=== PATIENT | male | born 1960 | race Caucasian/White ===

== ENCOUNTER 2016-08-14 07:37 | Day surgery (SDC) | payer OTHER ==
[2016-08-09 12:14] VITALS: BMI 19.8
[~2016-08-14 07:37] MED LIST: LACTATED RINGERS 1,000 ML IV SCH; LIDOCAINE 1% 20 ML VIAL (10MG/ML) FOR IV START INTRADERMA PRN
[2016-08-14] MEDS ORDERED: LACTATED RINGERS 1,000 ML IV ONE (07:47)
[2016-08-14 07:59] VITALS: RESP 16; TEMP 97.8
[2016-08-14 08:00] LABS: Glucose,Whole Blood 145 mg/dL (75-99)
[2016-08-14] MEDS ORDERED: PROPOFOL 10 MG/ML 20 ML VIAL IV ONE (08:08)
[2016-08-14] MEDS ORDERED: LIDOCAINE 1% INJ 10MG/ML (20 ML MDV) ONE (08:08)
--- NOTE | 2016-08-14 08:09 | P.GSHP ---
History of Present Illness H&P Date: 08/14/16 Chief Complaint: Rectal bleeding Patient here today for colonoscopy. He has a history of diverticulitis. Last CAT scan was in November and that did not show diverticulitis did show diverticulosis. He has frequent rectal bleeding that spot to be related to chronic hemorrhoids. He is having some mild constipation at times. No fevers or chills. Past Medical History Past Medical History: Cancer, COPD, Diabetes Mellitus, GERD/Reflux, Liver Disease, Osteoarthritis (OA) Additional Past Medical History / Comment(s): SKIN CANCER , CYST ON LIVER, CYST ON KIDNEY, DERMATOMYOSITIS History of Any Multi-Drug Resistant Organisms: None Reported Past Surgical History: Cholecystectomy, Ear Surgery, Hernia Repair, Joint Replacement, Orthopedic Surgery, Tonsillectomy Additional Past Surgical History / Comment(s): LEFT AKA - joint replacement surgery , allergic reaction to glue resulting in AKA, hernia surgery, 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 .cyst from parotid removed, right and left shoulder, right and left knee surgery, Past Anesthesia/Blood Transfusion Reactions: Postoperative Nausea & Vomiting ( PONV) Past Psychological History: Depression Smoking Status: Current every day smoker Past Alcohol Use History: None Reported Additional Past Alcohol Use History / Comment(s): started smoking at age 12 smkes 1ppd Past Drug Use History: Marijuana Additional Drug Use History / Comment(s): medical marijuana card - smokes once in a great while - Past Family History Mother Family Medical History: Cancer Additional Family Medical History / Comment(s): skin cancer Medications and Allergies Home Medications Medication Instructions Recorded Confirmed Type Albuterol Inhaler [Ventolin Hfa 2 puff INHALATION RT-Q6H PRN 10/20/15 08/14/16 History Inhaler] HYDROcodone/APAP 10-325MG [[place] 1 tab PO Q4HR PRN 10/20/15 08/14/16 History 10-325] Insulin Glargine [Lantus] 17 unit SQ 1200 10/20/15 08/14/16 History Ranitidine HCl 150 mg PO HS PRN 10/20/15 08/14/16 History glipiZIDE [Glucotrol] 5 mg PO AC-TID 10/20/15 08/14/16 History metFORMIN HCL [Glucophage] 500 mg PO BID 10/20/15 08/14/16 History traZODone HCL [Desyrel] 150 mg PO HS 10/20/15 08/14/16 History Allergies Allergy/AdvReac Type Severity Reaction Status Date / Time pneumococcal vaccine Allergy Nausea & Verified 08/14/16 07:50 Vomiting vancomycin Allergy Unknown Verified 08/14/16 07:50 amoxicillin trihydrate AdvReac Nausea & Verified 08/14/16 07:50 [From Augmentin] Vomiting potassium clavulanate AdvReac Nausea & Verified 08/14/16 07:50 [From Augmentin] Vomiting Flu vaccine Allergy Nausea & Uncoded 08/14/16 07:50 Vomiting methyl Allergy Unknown Uncoded 08/14/16 07:50 Surgical - Exam Vital Signs Temp Pulse Resp BP Pulse Ox 97.8 F 62 16 107/76 97 08/14/16 07:57 08/14/16 07:57 08/14/16 07:57 08/14/16 07:57 08/14/16 07:57 Physical exam: General: Well-developed, well-nourished HEENT: Normocephalic, sclerae nonicteric Abdomen: Nontender, nondistended Extremities: No edema Neuro: Alert and oriented, paraplegic Results - Labs Abnormal Lab Results - Last 24 Hours (Table) 08/14/16 Range/Units 07:57 POC Glucose (mg/dL) 145 H (75-99) mg/dL Assessment and Plan (1) Rectal bleeding Narrative/Plan: Will proceed with colonoscopy at this time. Associated risks were reviewed. Status: Acute
--- NOTE | 2016-08-14 08:32 | P.PCN ---
Date of Procedure: 08/14/16 Procedure(s) Performed: PREOPERATIVE DIAGNOSIS: Rectal bleed, change in bowel habits POSTOPERATIVE DIAGNOSIS: Hepatic flexure polyp 4, sigmoid colon polyp PROCEDURE: Colonoscopy with snare polypectomy ANESTHESIA: MAC SURGEON: Selwyn Cheng M.D. SPECIMENS: Polyps ENDOSCOPIC PROCEDURE: The patient was placed on the endoscopy table in the left decubitus position. The Olympus colonoscope was inserted into the anus and passed under direct visualization to the base of the cecum. The appendiceal orifice was visualized. From that point the scope was slowly withdrawn inspecting all surfaces carefully. There were no neoplastic inflammatory or polypoid lesions throughout the cecum or ascending colon. At the hepatic flexure there were 4 separate polyps all removed using the snare with cautery technique. The remainder of the transverse and descending colon appeared normal. In the sigmoid and additional small polyp removed in a similar fashion. The remainder of the sigmoid and rectum was normal. I was not able to visualize diverticulosis although the previous CAT scan suggested he may have some diverticular disease. The patient had hemorrhoids at the anus. The patient was taken to the recovery room in stable condition per anesthesia guidelines. RECOMMENDATIONS: Await biopsy results. Anticipate follow-up colonoscopy in 5 years
[2016-08-14 08:57] VITALS: BP 121/74; PULSE 67
== END 2016-08-14 09:16 | disposition home or self-care (01) ==
LOC: ORWHC2ENDO 07:37
PROVIDERS: ATTEND Surgery
DX: D12.3 Benign neoplasm of transverse colon (principal); D12.5 Benign neoplasm of sigmoid colon; K64.9 Unspecified hemorrhoids; Z87.19 Personal history of other diseases of the digestive system; J44.9 Chronic obstructive pulmonary disease, unspecified; E11.9 Type 2 diabetes mellitus without complications; K21.9 Gastro-esophageal reflux disease without esophagitis; M19.90 Unspecified osteoarthritis, unspecified site; F32.9 Major depressive disorder, single episode, unspecified; F17.200 Nicotine dependence, unspecified, uncomplicated; Z79.4 Long term (current) use of insulin; Z79.891 Long term (current) use of opiate analgesic; Z79.899 Other long term (current) drug therapy; Z88.1 Allergy status to other antibiotic agents; Z88.7 Allergy status to serum and vaccine; Z88.8 Allergy status to other drugs, medicaments and biological substances
CPT/HCPCS: 88305; 45385; J2001; J2704; 99153

== ENCOUNTER → 2016-09-11 | Outpatient (CLI) | payer OTHER ==
--- NOTE | 2016-09-11 13:55 | US ---
EXAMINATION TYPE: US kidneys/renal and bladder DATE OF EXAM: 09/11/2016 1:26 PM COMPARISON: Previous study dated 04/08/2016 CLINICAL HISTORY: R10.9 R Flank Pain. EXAM MEASUREMENTS: Right Kidney: 11.6 x 5.7 x 6.9cm Left Kidney: 13.2 x 4.8 x 6.7cm TECHNOLOGIST IMPRESSION: Right Kidney: wnl Left Kidney: superior pole cyst 2.6cm Bladder: wnl Bilateral Jets seen: yes There is no evidence for hydronephrosis at this point in time. No nephrolithiasis is seen. No mookie s are identified. The urinary bladder is anechoic. Bilateral ureteral jets are seen. IMPRESSION: Stable, 2.6 cm, simple appearing right left upper Pole renal cyst.
== END | disposition home or self-care (01) ==
LOC: RADUSWWP 13:01
PROVIDERS: ATTEND Internal Medicine
DX: N28.1 Cyst of kidney, acquired (principal)
CPT/HCPCS: 76770

== ENCOUNTER → 2017-03-05 | Outpatient (CLI) | payer OTHER ==
--- NOTE | 2017-03-05 14:14 | XR ---
EXAMINATION TYPE: XR chest 2V DATE OF EXAM: 03/05/2017 HISTORY: Cough, weight loss. REFERENCE: Previous study dated 04/05/2015. FINDINGS: The lungs are clear. Pleural space are clear. The heart is not enlarged. Note is made of bilateral rotator cuff surgery. IMPRESSION: NO ACUTE INTRATHORACIC ABNORMALITY.
== END | disposition home or self-care (01) ==
LOC: RADXRMAIN 13:36
PROVIDERS: ATTEND Internal Medicine
DX: R05 Cough (principal); R63.4 Abnormal weight loss
CPT/HCPCS: 71020

== ENCOUNTER 2017-05-21 07:04 | Day surgery (SDC) | payer OTHER ==
[2017-05-19 11:54] VITALS: BMI 19.8
[2017-05-21 07:25] VITALS: RESP 16; TEMP 97
[2017-05-21 07:34] LABS: Glucose,Whole Blood 118 mg/dL (75-99)
[2017-05-21] MEDS ORDERED: GLYCOPYRROLATE 0.2 MG/ML 2 ML VIAL ONE (07:36)
[2017-05-21] MEDS ORDERED: LIDOCAINE 1% INJ 10MG/ML (20 ML MDV) ONE (07:36)
[2017-05-21] MEDS ORDERED: PROPOFOL 10 MG/ML 20 ML VIAL IV ONE (07:36)
--- NOTE | 2017-05-21 07:49 | P.PCN ---
Date of Procedure: 05/21/17 Procedure(s) Performed: BRIEF HISTORY: Patient is a 57-year-old, pleasant, male, scheduled for an upper endoscopy as a part of evaluation of excessive dysphagia to solids and liquids for the last 3 months duration. Denies any weight loss. Does have occasional heartburn.. PROCEDURE PERFORMED: Esophagogastroduodenoscopy with biopsy. PREOPERATIVE DIAGNOSIS: Dysphagia to solids and liquids for 3 months duration. IV sedation per anesthesia. PROCEDURE: After informed consent was obtained, the patient was brought into the endoscopy unit. IV sedation was administered by Anesthesia under continuous monitoring. Initially the Olympus GIF-140 video endoscope was inserted into the mouth. Esophagus intubated without any difficulty. It was gradually advanced into the stomach and duodenum and carefully examined. The bulb and the second part of the duodenum appeared normal. There was mild erythema of the second portion of the duodenum and biopsies were done from this area to evaluate for celiac disease. The scope at this time was withdrawn to the stomach, adequately insufflated with air, and upon careful examination, mucosa of the antrum, had gastritis and biopsies were done from this area. The body, cardia and the fundus appeared normal. The scope was then withdrawn into the esophagus. The GE junction was located at 42 cm from the incisors. There was circumferential erythema noted and also short segment of Ramos's esophagus with a tongue of Ramos's appearing mucosa extending 5 mm from the proximal to the GE junction and this was biopsied. The rest of the esophagus appeared normal. There were no erosions or ulcerations seen and the patient tolerated the procedure well. IMPRESSION: 1. Mild antral gastritis and duodenitis. 2. Mild erythema of the GE junction and short segment Ramos's esophagus status post biopsy. 3. No evidence of esophageal stricture. RECOMMENDATIONS: The findings of this examination were discussed with the patient as well as his family. He was advised to follow with the biopsy results. In the meantime he will be given a prescription for Prevacid 20 mg daily and was briefly educated about antireflux measures. If he fails the trial of proton pump inhibitors for 8 weeks and continues to have persistent dysphagia, I will proceed with impedance esophageal manometry..
[2017-05-21 07:59] LABS: Glucose,Whole Blood 125 mg/dL (75-99)
[2017-05-21 08:10] VITALS: BP 134/75; PULSE 69
== END 2017-05-21 08:35 | disposition home or self-care (01) ==
LOC: ORWHC2ENDO 07:04
PROVIDERS: ATTEND Internal Medicine Gastroenterology
DX: K29.50 Unspecified chronic gastritis without bleeding (principal); K29.80 Duodenitis without bleeding; K21.0 Gastro-esophageal reflux disease with esophagitis; J44.9 Chronic obstructive pulmonary disease, unspecified; E11.9 Type 2 diabetes mellitus without complications; Z88.0 Allergy status to penicillin; Z88.1 Allergy status to other antibiotic agents; Z79.4 Long term (current) use of insulin; Z79.891 Long term (current) use of opiate analgesic; Z79.899 Other long term (current) drug therapy
CPT/HCPCS: 88305; 88342; 43239; J2001; J2704

== ENCOUNTER 2017-11-05 15:48 | Emergency (ER) | payer OTHER ==
[2017-11-05 16:05] VITALS: RESP 18; TEMP 98.2
[2017-11-05] MEDS ORDERED: MORPHINE SULFATE IR 15 MG TABLET PO STA (16:23)
[2017-11-05 18:14] VITALS: BP 121/63; PULSE 91
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
== END 2017-11-05 18:49 | disposition home or self-care (01) ==
LOC: EC 15:48
DX: S06.0X0A Concussion without loss of consciousness, initial encounter (principal); E11.9 Type 2 diabetes mellitus without complications; F32.9 Major depressive disorder, single episode, unspecified; F17.200 Nicotine dependence, unspecified, uncomplicated; Z88.0 Allergy status to penicillin; Z88.1 Allergy status to other antibiotic agents; Z88.7 Allergy status to serum and vaccine; Z88.8 Allergy status to other drugs, medicaments and biological substances; Z79.4 Long term (current) use of insulin; Z79.84 Long term (current) use of oral hypoglycemic drugs; Z79.899 Other long term (current) drug therapy; Y04.0XXA Assault by unarmed brawl or fight, initial encounter
CPT/HCPCS: 70450; 72125; 99283

== ENCOUNTER → 2017-12-05 | Outpatient (CLI) | payer OTHER ==
--- NOTE | 2017-12-05 08:25 | US ---
EXAMINATION TYPE: US abdomen complete DATE OF EXAM: 12/05/2017 COMPARISON: CT abdomen and pelvis November 18, 2015. CLINICAL HISTORY: Q44.6 Liver cyst, N28.1 Kidney cyst. LLQ pain related to constipation issues EXAM MEASUREMENTS: Liver Length: 14.7 cm Gallbladder Wall: Surgically absent CBD: 0.6 cm Spleen: 11.3 cm Right Kidney: 12.6 x 4.9 x 6.1 cm Left Kidney: 12.1 x 4.7 x 7.1 cm limited views due to bowel gas Pancreas: areas seen appear wnl Liver: 2.0cm medial left lobe cyst seen Gallbladder: Surgically absent Evidence for sonographic Lockhart's sign: no CBD: wnl Spleen: wnl Right Kidney: wnl Left Kidney: 2.4cm superior pole cyst Upper IVC: wnl Abd Aorta: wnl Scanned LLQ at area of pain and saw no obvious abnormality The visualized liver shows thin-walled 1.7 cm cyst left hepatic dome. Liver is overall heterogeneous ly hyperechoic. The intrahepatic portion of the IVC and visualized abdominal aorta are within normal limits. Gallbladder is surgically absent. Common bile duct is unremarkable. The visualized portions of the pancreas are homogenous. The spleen is unremarkable. Kidneys are symmetric and free of hydr onephrosis. No new renal lesions are seen. A 2.4 cm simple appearing cyst upper pole left kidney is redemonstrated. Last few images scanning of left lower quadrant and site of pain show no worrisome so lid or cystic mass or fluid collection. IMPRESSION: No suspicious new finding is seen to account for patient's symptoms.
== END | disposition home or self-care (01) ==
LOC: RADUSWWP 06:53
PROVIDERS: ATTEND Internal Medicine
DX: N28.1 Cyst of kidney, acquired (principal)
CPT/HCPCS: 76700

== ENCOUNTER → 2018-03-19 | Outpatient (CLI) | payer OTHER ==
--- NOTE | 2018-03-19 14:40 | MR ---
EXAMINATION TYPE: MR lumbar spine wo con DATE OF EXAM: 03/19/2018 COMPARISON: MRI lumbar spine June 12, 2016. CT abdomen and pelvis November 18, 2015. HISTORY: Low back pain per order and patient for 4 years. TECHNIQUE: Multiplanar, multisequence imaging of the lumbar spine is performed without IV contrast. FINDINGS: Sagittal images of the lumbar spine show vertebral body heights to remain satisfactory. Ali gnment is stable and straightened. There is redemonstration of disc desiccation L4-L5 and L5-S1 level s with perhaps mild disc space narrowing L5-S1 level. Small posterior disc herniations at these level s are redemonstrated on sagittal images. The conus medullaris remains normal in position and signal e nding mid L1 level . The bone marrow signal intensity is within normal limits. There is mild to moder ate multilevel anterior spurring. Axial images show the T12-L1 and the L1-L2 levels to remain within normal limits. Axial images at L2-L3 and the L3-L4 levels redemonstrate mild facet degenerative changes and ligament um flavum hypertrophy bilaterally but spinal canal is preserved and bilateral neural foramina are pat ent. No significant change from prior. Axial images at the L4-L5 level show mild to moderate broad disc bulge mildly effacing anterior theca l sac and causing moderate right and mild to moderate left-sided neural foraminal narrowing. No signi ficant change from prior MRI. Axial images at the L5-S1 level show broad disc bulge with left paracentral disc protrusion component effacing anterolateral thecal sac and causing mild bilateral anterior inferior neural foraminal narr owing. No significant change from prior study. There are few simple appearing round T2 hyperintense lesions throughout the visualized left kidney re demonstrated felt to reflect simple cysts, largest is stable or slightly less prominent measuring 2.1 cm long axis axial image 26. IMPRESSION: Straightening of lumbar spine with degenerative changes L4-L5 and L5-S1 levels redemonstr ated. No significant change from prior MRI.
== END ==
LOC: RADMRIMAIN 11:58
PROVIDERS: ATTEND Internal Medicine
DX: M51.36 Other intervertebral disc degeneration, lumbar region (principal); M51.37 Other intervertebral disc degeneration, lumbosacral region
CPT/HCPCS: 72148

== ENCOUNTER → 2018-06-18 | Outpatient (CLI) | payer OTHER ==
[2018-06-18 15:34] LABS: HGB 17.4 gm/dL (13.0-17.5); MCH 30.9 pg (25.0-35.0); MCHC 33.4 g/dL (31.0-37.0); MCV 92.5 fL (80.0-100.0); Mean Platelet Volume 7.6; Platelet Count 156 k/uL (150-450); RBC 5.62 m/uL (4.30-5.90); RDW 13.1 % (11.5-15.5); WBC 9.8 k/uL (3.8-10.6)
[2018-06-18 16:02] LABS: Blood Urea Nitrogen 13 mg/dL (9-20); Potassium 3.8 mmol/L (3.5-5.1)
== END ==
LOC: LABPAT 14:34
PROVIDERS: ATTEND Orthopaedic Surgery
DX: Z01.812 Encounter for preprocedural laboratory examination (principal); Z79.4 Long term (current) use of insulin; Z79.899 Other long term (current) drug therapy
CPT/HCPCS: 36415; 82565; 84132; 84520; 85027

== ENCOUNTER → 2018-10-15 | Outpatient (CLI) | payer OTHER ==
--- NOTE | 2018-10-15 15:48 | US ---
EXAMINATION TYPE: US kidneys/renal and bladder DATE OF EXAM: 10/15/2018 COMPARISON: US 2017 CLINICAL HISTORY: R10.30 LOWER ABD PAIN. Intermittent lower abdomen and back pain x 6 months. EXAM MEASUREMENTS: Right Kidney: 11.2 x 6.0 x 5.2 cm Left Kidney: 11.8 x 6.0 x 4.6 cm Post Void Residual Volume: 42.4 mL Right Kidney: wnl Left Kidney: 2.3 x 2.2 x 2.4cm hypoechoic cystic area superior pole Bladder: wnl Bilateral Jets seen: yes Normal Post Void Residual: yes There is no evidence for hydronephrosis at this point in time. No nephrolithiasis is seen. No mookie s are identified. The urinary bladder is anechoic. Bilateral ureteral jets are seen. IMPRESSION: No hydronephrosis or nephrolithiasis. 2.4 cm left renal cyst appears simple.
== END | disposition home or self-care (01) ==
LOC: RADUSWWP 15:01
PROVIDERS: ATTEND Internal Medicine
DX: N28.1 Cyst of kidney, acquired (principal)
CPT/HCPCS: 76770

== ENCOUNTER 2019-07-19 21:49 | Emergency (ER) | payer OTHER ==
[2019-07-19 21:55] VITALS: RESP 18
[2019-07-19] MEDS ORDERED: KETOROLAC 30 MG/ML 1 ML VIAL IVP STA (22:31)
[2019-07-19] MEDS ORDERED: SODIUM CHLORIDE 0.9% 1,000 ML IV STA (22:31)
[2019-07-19] MEDS ORDERED: ONDANSETRON 4 MG/2 ML VIAL IVP STA (22:31)
--- NOTE | 2019-07-19 22:43 | ED ---
General Adult HPI - General Chief complaint: Abdominal Pain Stated complaint: no BM x8days Time Seen by Provider: 07/19/19 21:58 Source: patient Mode of arrival: wheelchair Limitations: physical limitation - History of Present Illness Initial comments: 59-year-old male patient presents to the emergency department today for evaluation of abdominal pain and constipation. States he has not had a bowel movement for the last 8 days. States the pain in his abdomen is worsening and worsening. He is able to urinate without difficulty. States that he also had a syncopal episode earlier today. He is sitting on the edge of the bed when he lost consciousness and fell on the floor. Denies any injuries from this fall. States that over the last 2-3 days he has had chest tightness and pain as well as shortness of breath. States he's been having intermittent sweats as well. He does have a reported history of diabetes and familial cardiac disease. 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 States he does occasionally have problems with constipation, has been taking Colace and MiraLAX without relief. Patient denies any recent rash, fever, chills, numbness, tingling, dizziness, weakness, hematuria, dysuria, urinary urgency, urinary frequency, headache, visual changes, or any other complaints. - Related Data Home Medications Medication Instructions Recorded Confirmed Albuterol Inhaler [Ventolin Hfa 2 puff INHALATION RT-Q6H PRN 10/20/15 06/22/18 Inhaler] Ranitidine HCl 150 mg PO DAILY PRN 10/20/15 06/22/18 metFORMIN HCL [Glucophage] 500 mg PO BID 10/20/15 06/22/18 glipiZIDE [Glucotrol] 5 mg PO TID 11/05/17 06/22/18 traZODone HCL 150 mg PO HS 11/05/17 06/22/18 Insulin Glargine,Hum.rec.anlog 30 unit SQ W/LUNCH 06/17/18 06/22/18 [Basaglar Kwikpen U-100] Mirtazapine [Remeron] 15 mg PO HS PRN 06/17/18 06/22/18 Previous Rx's Medication Instructions Recorded HYDROcodone/APAP 10-325MG [[place] 1 tab PO Q6H PRN #120 tab 06/23/18 10-325] Allergies Allergy/AdvReac Type Severity Reaction Status Date / Time adhesive Allergy skin Verified 07/19/19 21:56 irritation,paper tape is ok Influenza Virus Vaccines Allergy Nausea & Verified 07/19/19 21:56 Vomiting pneumococcal vaccine Allergy Nausea & Verified 07/19/19 21:56 Vomiting vancomycin Allergy GarretAndrea Verified 07/19/19 21:56 syndrome amoxicillin trihydrate AdvReac Nausea & Verified 07/19/19 21:56 [From Augmentin] Vomiting potassium clavulanate AdvReac Nausea & Verified 07/19/19 21:56 [From Augmentin] Vomiting methlomacrolate Allergy leg Uncoded 07/19/19 21:56 amputated methyl Allergy methylcrylate-used Uncoded 07/19/19 21:56 in surgery glue Review of Systems ROS Statement: Those systems with pertinent positive or pertinent negative responses have been documented in the HPI. ROS Other: All systems not noted in ROS Statement are negative. 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 , allergic reaction to glue resulting in AKA, 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 .cyst from parotid removed, right and left shoulder, right and left knee surgery, Past Anesthesia/Blood Transfusion Reactions: Postoperative Nausea & Vomiting (PONV) Past Psychological History: Depression Smoking Status: Current every day smoker Past Alcohol Use History: None Reported Past Drug Use History: None Reported - Past Family History Mother Family Medical History: Cancer Additional Family Medical History / Comment(s): skin cancer General Exam Limitations: physical limitation General appearance: alert, in no apparent distress, other (Physical well- developed, well-nourished adult male patient in no acute distress. Vital signs upon presentation are temperature 98.7F, pulse 104, respirations 18, blood pressure 94/60, pulse ox 94% on room air.) Eye exam: Present: normal appearance, PERRL, EOMI. Absent: scleral icterus, conjunctival injection, periorbital swelling ENT exam: Present: normal exam, normal oropharynx, mucous membranes moist Respiratory exam: Present: normal lung sounds bilaterally. Absent: respiratory distress, wheezes, rales, rhonchi, stridor Cardiovascular Exam: Present: regular rate, normal rhythm, normal heart sounds. Absent: systolic murmur, diastolic murmur, rubs, gallop, clicks GI/Abdominal exam: Present: soft, tenderness (Generalized), normal bowel sounds. Absent: distended, guarding, rebound, rigid Neurological exam: Present: alert, oriented X3, CN II-XII intact Psychiatric exam: Present: normal affect, normal mood Skin exam: Present: warm, dry, intact, normal color. Absent: rash Course Vital Signs 07/19/19 07/20/19 21:50 02:21 Temperature 98.7 F 97 F L Pulse Rate 104 H 77 Respiratory 18 18 Rate Blood Pressure 94/60 144/84 O2 Sat by Pulse 94 L 97 Oximetry EKG Findings - EKG Comments: EKG Findings:: EKG obtained at 2322 shows normal sinus rhythm with a ventricular rate of 81, MA interval 170, QRS duration 98, QT 392, QTc 455. No evidence of ST elevation or depression. Medical Decision Making - Medical Decision Making 59-year-old male patient presents to the emergency department today for cody luation of abdominal discomfort and constipation. His examination did reveal lower abdominal tenderness. Patient is also reporting some intermittent chest pain and shortness of breath present for the last couple of weeks. EKG was unremarkable. Chest x-ray showed no acute cardiopulmonary process. KUB showed overall nonobstructive bowel gas pattern. Patient's white blood cell count elevated at 17,000, did perform CT the abdomen and pelvis which was negative. Patient does have a medical condition which causes leukocytosis. Did offer to perform enema in the emergency department, patient declined requesting to take enema home. He'll be discharged with a fleets enema. He is instructed to increase fluids and fruits and vegetables in his diet. Instructed to follow-up his primary care physician for recheck in 1-2 days. Return parameters were discussed in detail. He verbalizes understanding and agrees with this plan. - Lab Data Result diagrams: 07/19/19 22:47 07/19/19 22:47 Lab Results 07/19/19 07/19/19 07/19/19 Range/Units 22:47 22:47 22:47 WBC 17.3 H (3.8-10.6) k/uL RBC 5.22 (4.30-5.90) m/uL Hgb 16.3 (13.0-17.5) gm/dL Hct 46.7 (39.0-53.0) % MCV 89.4 (80.0-100.0) fL MCH 31.2 (25.0-35.0) pg MCHC 34.9 (31.0-37.0) g/dL RDW 12.9 (11.5-15.5) % Plt Count 160 (150-450) k/uL Neutrophils % 84 % Lymphocytes % 9 % Monocytes % 5 % Eosinophils % 1 % Basophils % 1 % Neutrophils # 14.6 H (1.3-7.7) k/uL Lymphocytes # 1.5 (1.0-4.8) k/uL Monocytes # 0.8 (0-1.0) k/uL Eosinophils # 0.1 (0-0.7) k/uL Basophils # 0.1 (0-0.2) k/uL Sodium 134 L (137-145) mmol/L Potassium 3.4 L (3.5-5.1) mmol/L Chloride 99 (98-107) mmol/L Carbon Dioxide 27 (22-30) mmol/L Anion Gap 8 mmol/L BUN 16 (9-20) mg/dL Creatinine 0.69 (0.66-1.25) mg/dL Est GFR (CKD-EPI)AfAm >90 (>60 ml/min/1.73 sqM) Est GFR (CKD-EPI)NonAf >90 (>60 ml/min/1.73 sqM) Glucose 160 H (74-99) mg/dL Calcium 8.5 (8.4-10.2) mg/dL Total Bilirubin 1.2 (0.2-1.3) mg/dL AST 32 (17-59) U/L ALT 36 (21-72) U/L Alkaline Phosphatase 106 (38-126) U/L Troponin I <0.012 (0.000-0.034) ng/mL Total Protein 6.5 (6.3-8.2) g/dL Albumin 3.6 (3.5-5.0) g/dL Amylase <30 L (30-110) U/L Lipase 50 (23-300) U/L Urine Color Urine Appearance (Clear) Urine pH (5.0-8.0) Ur Specific [place] (1.001-1.035) Urine Protein (Negative) Urine Glucose (UA) (Negative) Urine Ketones (Negative) Urine Blood (Negative) Urine Nitrite (Negative) Urine Bilirubin (Negative) Urine Urobilinogen (<2.0) mg/dL Ur Leukocyte Esterase (Negative) Urine RBC (0-5) /hpf Urine WBC (0-5) /hpf Urine Mucus (None) /hpf 07/19/19 Range/Units 23:30 WBC (3.8-10.6) k/uL RBC (4.30-5.90) m/uL Hgb (13.0-17.5) gm/dL Hct (39.0-53.0) % MCV (80.0-100.0) fL MCH (25.0-35.0) pg MCHC (31.0-37.0) g/dL RDW (11.5-15.5) % Plt Count (150-450) k/uL Neutrophils % % Lymphocytes % % Monocytes % % Eosinophils % % Basophils % % Neutrophils # (1.3-7.7) k/uL Lymphocytes # (1.0-4.8) k/uL Monocytes # (0-1.0) k/uL Eosinophils # (0-0.7) k/uL Basophils # (0-0.2) k/uL Sodium (137-145) mmol/L Potassium (3.5-5.1) mmol/L Chloride (98-107) mmol/L Carbon Dioxide (22-30) mmol/L Anion Gap mmol/L BUN (9-20) mg/dL Creatinine (0.66-1.25) mg/dL Est GFR (CKD-EPI)AfAm (>60 ml/min/1.73 sqM) Est GFR (CKD-EPI)NonAf (>60 ml/min/1.73 sqM) Glucose (74-99) mg/dL Calcium (8.4-10.2) mg/dL Total Bilirubin (0.2-1.3) mg/dL AST (17-59) U/L ALT (21-72) U/L Alkaline Phosphatase (38-126) U/L Troponin I (0.000-0.034) ng/mL Total Protein (6.3-8.2) g/dL Albumin (3.5-5.0) g/dL Amylase (30-110) U/L Lipase (23-300) U/L Urine Color Yellow Urine Appearance Clear (Clear) Urine pH 5.5 (5.0-8.0) Ur Specific [place] 1.023 (1.001-1.035) Urine Protein 1+ H (Negative) Urine Glucose (UA) 3+ H (Negative) Urine Ketones Trace H (Negative) Urine Blood Small H (Negative) Urine Nitrite Negative (Negative) Urine Bilirubin Negative (Negative) Urine Urobilinogen 2.0 (<2.0) mg/dL Ur Leukocyte Esterase Negative (Negative) Urine RBC <1 (0-5) /hpf Urine WBC 1 (0-5) /hpf Urine Mucus Occasional H (None) /hpf - Radiology Data Radiology results: report reviewed, image reviewed CT abdomen and pelvis with contrast was obtained. Report reviewed in its entirety. Impression by Dr. Gonsales shows normal appendix. No sign of acute abdomen and pelvis. Nonobstructing small right renal calculus. There is patchy interstitial infiltrate the lung bases that is increased compared to old exam. 2 views of the abdomen are obtained. Report was reviewed in its entirety. Imp ression by Dr. Gonsales shows nonacute abdomen. No free air. Two-view x-ray of the chest is obtained. Report was reviewed in its entirety. Impression by Dr. Gonsales shows increased pulmonary interstitial density compared to old exam could relate to not interstitial pneumonia. Normal heart. Disposition Clinical Impression: Abdominal pain Disposition: HOME SELF-CARE Condition: Good Instructions (If sedation given, give patient instructions): Constipation (ED), Abdominal Pain (ED) Additional Instructions: Increase fluids. He is enema as directed. Follow-up with your primary care physician for recheck in 1-2 days. Return to the emergency department immediately for any new, worsening, or concerning symptoms. Is patient prescribed a controlled substance at d/c from ED?: No Referrals: Cesia Batista MD [Primary Care Provider] - 1-2 days Time of Disposition: 02:12
[2019-07-19 22:57] LABS: Basophils # (A) 0.1 k/uL (0-0.2); Basophils % (A) 1 %; Eosinophils # (A) 0.1 k/uL (0-0.7); Eosinophils % (A) 1 %; HCT 46.7 % (39.0-53.0); HGB 16.3 gm/dL (13.0-17.5); Lymphocytes # (A) 1.5 k/uL (1.0-4.8); Lymphocytes % (A) 9 %; MCH 31.2 pg (25.0-35.0); MCHC 34.9 g/dL (31.0-37.0); MCV 89.4 fL (80.0-100.0); Mean Platelet Volume 8.3; Monocytes # (A) 0.8 k/uL (0-1.0); Monocytes % (A) 5 %; Neutrophils # (A) 14.6 k/uL (1.3-7.7); Neutrophils % (A) 84 %; Platelet Count 160 k/uL (150-450); RBC 5.22 m/uL (4.30-5.90); RDW 12.9 % (11.5-15.5); WBC 17.3 k/uL (3.8-10.6)
[2019-07-19 23:07] LABS: ALT 36 U/L (21-72); AST 32 U/L (17-59); African American GFR (CKD) >90 (>60 ml/min/1.73 sqM); Albumin 3.6 g/dL (3.5-5.0); Alkaline Phosphatase 106 U/L (38-126); Amylase <30 U/L (30-110); Anion Gap 8 mmol/L; Blood Urea Nitrogen 16 mg/dL (9-20); Calcium 8.5 mg/dL (8.4-10.2); Carbon Dioxide 27 mmol/L (22-30); Chloride 99 mmol/L (98-107); Glucose 160 mg/dL (74-99); Non-African American GFR(CKD) >90 (>60 ml/min/1.73 sqM); Potassium 3.4 mmol/L (3.5-5.1); Sodium 134 mmol/L (137-145); Total Bilirubin 1.2 mg/dL (0.2-1.3); Total Protein 6.5 g/dL (6.3-8.2)
--- NOTE | 2019-07-19 23:07 | XR ---
EXAMINATION TYPE: XR chest 2V DATE OF EXAM: 07/19/2019 COMPARISON: 03/05/2017 HISTORY: Abdominal pain. Chest pain TECHNIQUE: Frontal and lateral views of the chest are obtained. FINDINGS: Heart and mediastinum are normal. Lungs are clear of consolidation. There is some coarseni ng of the interstitial markings. Bony thorax is intact. IMPRESSION: Increased pulmonary interstitial density compared to old exam could relate to mild inter stitial pneumonia. Normal heart.
--- NOTE | 2019-07-19 23:08 | XR ---
EXAMINATION TYPE: XR KUB DATE OF EXAM: 07/19/2019 COMPARISON: NONE HISTORY: Abdominal pain TECHNIQUE: 2 views upright FINDINGS: There is no sign of intestinal obstruction or pneumoperitoneum. Fecal pattern is normal. Th ere is no evidence of a mass. IMPRESSION: Nonacute abdomen. No free air.
[2019-07-19 23:45] LABS: Appearance,Urine Clear (Clear); Bilirubin,Urine Negative (Negative); Blood,Urine Small (Negative); Color,Urine Yellow; Glucose,Urine (UA) 3+ (Negative); Ketones,Urine Trace (Negative); Leukocyte Esterase,Urine Negative (Negative); Mucus,Urine Occasional /hpf; Nitrite,Urine Negative (Negative); PH, Urine 5.5 (5.0-8.0); Protein,Urine 1+ (Negative); RBC,Urine <1 /hpf (0-5); Specific Gravity,Urine 1.023 (1.001-1.035)
--- NOTE | 2019-07-20 00:51 | CT ---
EXAMINATION TYPE: CT abdomen pelvis w con DATE OF EXAM: 07/20/2019 COMPARISON: 11/18/2015 HISTORY: abd pain CT DLP: 820.9 mGycm Automated exposure control for dose reduction was used. CONTRAST: Performed with IV Contrast, patient injected with 100 mL of Isovue 300. There is coarse interstitial infiltrate at the lung bases. Heart size is normal. There is irregular 2 cm cyst in the left lobe of the liver. There are clips from cholecystectomy. Spleen and stomach and pancreas appear normal. Bile ducts are not dilated. There is no adrenal mass. There is 3 cm cortical cyst posterior left kidney. There is 4 mm calculus l ower pole right kidney. There is no hydronephrosis. Ureters are not dilated. Appendix appears normal. Abdominal aorta is atheromatous. Bladder distends smoothly. There is no inguinal hernia. There is no free fluid in the pelvis. There i s no mesenteric edema. There is no ascites or free air. There is no sign of a bowel obstruction. Lumb ar vertebra have normal alignment. There is mild posterior disc herniations at L4-5 and L5-S1. There is developmentally adequate spinal canal. There is no compression fracture. Bony pelvis is intact. IMPRESSION: Normal appendix. No sign of acute abdomen and pelvis. Nonobstructing small right renal calculus. Ther e is patchy interstitial infiltrate at the lung bases that is increased compared to old exam.
[2019-07-20] MEDS ORDERED: NA PHOS,M-B/NA PHOS,DI-BA 133 ML ENEMA RECTAL STA (02:11)
[2019-07-20 02:22] VITALS: BP 144/84; PULSE 77; TEMP 97
== END 2019-07-20 02:22 | disposition home or self-care (01) ==
LOC: EC 21:49
DX: R10.9 Unspecified abdominal pain (principal); K59.00 Constipation, unspecified; R06.02 Shortness of breath; R07.9 Chest pain, unspecified; D72.829 Elevated white blood cell count, unspecified; F32.9 Major depressive disorder, single episode, unspecified; J44.9 Chronic obstructive pulmonary disease, unspecified; F17.200 Nicotine dependence, unspecified, uncomplicated; K21.9 Gastro-esophageal reflux disease without esophagitis; E11.9 Type 2 diabetes mellitus without complications; M19.90 Unspecified osteoarthritis, unspecified site; Z79.51 Long term (current) use of inhaled steroids; Z79.84 Long term (current) use of oral hypoglycemic drugs; Z79.4 Long term (current) use of insulin; Z79.899 Other long term (current) drug therapy; Z88.8 Allergy status to other drugs, medicaments and biological substances; Z88.0 Allergy status to penicillin; Z88.1 Allergy status to other antibiotic agents; Z88.7 Allergy status to serum and vaccine; Z91.048 Other nonmedicinal substance allergy status; Z87.19 Personal history of other diseases of the digestive system; Z85.828 Personal history of other malignant neoplasm of skin; Z90.49 Acquired absence of other specified parts of digestive tract; Z96.652 Presence of left artificial knee joint; Z89.612 Acquired absence of left leg above knee
CPT/HCPCS: 36415; 93005; 80053; 82150; 83690; 84484; 85025; 81001; 71046; 74018; 74177; 99284; 96374; 96375; 96361 ×3; J2405; J1885; Q9967

== ENCOUNTER → 2020-05-26 | Outpatient (CLI) | payer OTHER ==
--- NOTE | 2020-05-26 10:38 | XR ---
EXAM TYPE: LUMBAR SPINE X RAY SERIES COMPARISON: NONE HISTORY: Pain TECHNIQUE: 4 views are submitted. FINDINGS: Alignment is anatomic. The pedicles are intact. The transverse processes are intact. There is no s pondylolysis or spondylolisthesis. Multilevel hypertrophic and degenerative changes most marked at L 5-S1. There is multilevel facet arthropathy. Vascular calcifications are noted. IMPRESSION: 1. Multilevel hypertrophic and degenerative change..
== END | disposition home or self-care (01) ==
LOC: RADXRMAIN 09:32
PROVIDERS: ATTEND Internal Medicine
DX: M47.816 Spondylosis without myelopathy or radiculopathy, lumbar region (principal); M47.817 Spondylosis without myelopathy or radiculopathy, lumbosacral region
CPT/HCPCS: 72100

== ENCOUNTER → 2020-10-11 | Outpatient (CLI) | payer OTHER ==
--- NOTE | 2020-10-12 04:39 | MR ---
EXAMINATION TYPE: MR lumbar spine wo/w con DATE OF EXAM: 10/11/2020 COMPARISON: Lumbar radiographs 05/26/2020 HISTORY: 60-year-old male Low back pain Technique: Multiplanar, multisequence images of the lumbar spine were obtained before and after admin istration of 6.5 mL intravenous Gadavist gadolinium contrast. FINDINGS: Vertebral body heights are preserved and alignment is maintained. There is hypertrophic facet arthropathy in the mid to lower lumbar spine. Ouwb-av-mvbceyox degenerative disc disease L4-L5 and L5-S1 with desiccated bulging discs. Conus medullaris is normal. No suspicious bone marrow replacement.. Incidental 2.8 cm left renal cyst. No prevertebral paravertebral soft tissue abnormality otherwise se en. From T12 through L3 levels, no spinal canal or foraminal stenosis. At L3-L4, there is facet arthropathy but no significant canal or foraminal stenosis. At L4-L5, there is ligamentum flavum thickening with facet arthropathy and diffuse disc bulge especia lly off to the sides. Disc material closely approaches but does not clearly abut the traversing left L5 nerve root. While there is impression of the ventral thecal sac, there is no significant spinal ca nal stenosis. Changes result in moderate right greater than left neuroforaminal stenosis. At L5-S1, facet arthropathy with diffuse disc bulge. There is a superimposed central, left paracentra l disc protrusion. There appears to be abutment of the traversing left S1 nerve root. There is impres tripp of the ventral thecal sac without significant spinal canal stenosis. Changes result in mild left greater than right neuroforaminal stenosis. No abnormal enhancement within the spinal canal. IMPRESSION: 1. Mild to moderate degenerative disc disease lower lumbar spine along with hypertrophic facet arthro natalya and some ligamentum flavum thickening. 2. No significant spinal canal stenosis. 3. At L5-S1, there is diffuse disc bulge with a superimposed central, left paracentral disc herniatio n which abuts the traversing left S1 nerve root. Mild left greater than right neuroforaminal stenosis . 4. At L4-L5, there is moderate right greater than left neural foraminal stenosis. Disc material also closely approaches but does not clearly abut the traversing left L5 nerve root at this level.
== END ==
LOC: RADMRIMAIN 10:41
PROVIDERS: ATTEND Internal Medicine
DX: M51.36 Other intervertebral disc degeneration, lumbar region (principal); M47.816 Spondylosis without myelopathy or radiculopathy, lumbar region; M51.27 Other intervertebral disc displacement, lumbosacral region; M99.73 Connective tissue and disc stenosis of intervertebral foramina of lumbar region
CPT/HCPCS: 72158; A9585

== ENCOUNTER → 2020-12-18 | Outpatient (CLI) | payer OTHER ==
[2020-12-18 19:08] LABS: HCT 51.7 % (39.6-50.0); HGB 17.1 g/dL (13.0-17.0); MCH 30.5 pg (27.0-32.0); MCHC 33.1 g/dL (32.0-37.0); MCV 92.3 fL (80.0-97.0); Mean Platelet Volume 10.6 fL (9.5-12.2); Platelet Count 188 X 10*3/uL (140-440); RDW 13.2 % (11.5-14.5); WBC 10.27 X 10*3/uL (4.50-10.00)
[2020-12-18 21:50] LABS: Albumin 4.3 g/dL (3.80-4.90); Albumin/Globulin Ratio 2.15 (1.60-3.17); BUN/Creat Ratio 13.75 Ratio (12.00-20.00); Non-African American GFR(CKD) 95.7 (60.0-200.0); Potassium 4.3 mmol/L (3.5-5.5); Total Bilirubin 0.5 mg/dL (0.2-1.2); Total Protein 6.3 g/dL (6.2-8.2)
[2020-12-18 21:57] LABS: T4, Free (Free Thyroxine) 1.3 ng/dL (0.80-1.80)
== END | disposition home or self-care (01) ==
LOC: LABWHC1 13:59
PROVIDERS: ATTEND Psychiatry & Neurology Neurology
DX: E87.8 Other disorders of electrolyte and fluid balance, not elsewhere classified (principal); R53.83 Other fatigue; R41.3 Other amnesia
CPT/HCPCS: 36415; 80053; 82607; 84439; 84443; 85027

== ENCOUNTER → 2021-01-18 | Outpatient (CLI) | payer OTHER ==
--- NOTE | 2021-01-18 16:29 | XR ---
EXAMINATION TYPE: XR wrist complete LT DATE OF EXAM: 01/18/2021 COMPARISON: NONE HISTORY: Pain TECHNIQUE: Four views submitted. FINDINGS: There is narrowing of the radiocarpal joint. Lucency involving the triquetrum noted. This is somewhat globular rather than linear. Remaining osseous structures demonstrate no acute fracture or dislocati on. IMPRESSION: 1. Lucency involving the triquetrum correlate with point tenderness to exclude hairline fracture.
--- NOTE | 2021-01-18 16:31 | XR ---
EXAMINATION TYPE: XR hand complete LT DATE OF EXAM: 01/18/2021 COMPARISON: NONE HISTORY: Pain TECHNIQUE: Three views are submitted. FINDINGS: The osseous structures are intact. Questionable lucency involving the triquetrum. The joint spaces a re preserved and there is no acute fracture or dislocation. IMPRESSION: 1. Questionable lucency involving the triquetrum. Correlate with point tenderness to exclude hairline fracture.
--- NOTE | 2021-01-18 16:31 | XR ---
EXAMINATION TYPE: XR forearm LT DATE OF EXAM: 01/18/2021 COMPARISON: NONE HISTORY: Pain Two views of the forearm demonstrate that the osseous structures appear to be intact and the joint sp aces appear to be preserved. There is no acute fracture or dislocation. Soft tissue calcifications noted. IMPRESSION: 1. No acute fracture or dislocation
== END | disposition home or self-care (01) ==
LOC: RADXRMAIN 15:30
PROVIDERS: ATTEND Internal Medicine
DX: M79.642 Pain in left hand (principal); M25.532 Pain in left wrist; M79.632 Pain in left forearm

== ENCOUNTER 2021-03-22 01:19 | Emergency (ER) | payer OTHER ==
[2021-03-22 01:26] VITALS: BP 157/79; PULSE 91; RESP 22; TEMP 98.2
--- NOTE | 2021-03-22 01:42 | ED ---
Upper Extremity HPI - General Chief Complaint: Extremity Injury, Upper Stated Complaint: Left hand injury Time Seen by Provider: 03/22/21 01:28 Source: patient, RN notes reviewed, old records reviewed Mode of arrival: ambulatory Limitations: no limitations - History of Present Illness Initial Comments: This is a 60-year-old male to the ER for evaluation patient presents for mechanical trip and fall with left wrist pain. Patient fell forward over his body which he uses for her knee amputation, patient fell forward landing on his left wrist was no other to medic injury noted. Patient has no other complaints aside from left wrist pain. No drugs or alcohol were involved MD Complaint: Injury to:: left, wrist -: hour(s) Other Extremity Injury: Wrist: Left Other Injuries: none Handedness: right Place: home Severity scale (1-10): 6 Improves With: none Worsens With: none Context: fall, direct blow Associated Symptoms: denies other symptoms - Related Data Home Medications Medication Instructions Recorded Confirmed Albuterol Inhaler (Mhu) [Ventolin 2 puff INHALATION RT-Q6H PRN 10/20/15 06/22/18 Hfa Inhaler (Mhu)] Ranitidine HCl 150 mg PO DAILY PRN 10/20/15 06/22/18 metFORMIN HCL [Glucophage] 500 mg PO BID 10/20/15 06/22/18 glipiZIDE [Glucotrol] 5 mg PO TID 11/05/17 06/22/18 traZODone HCL 150 mg PO HS 11/05/17 06/22/18 Insulin Glargine,Hum.rec.anlog 30 unit SQ W/LUNCH 06/17/18 06/22/18 [Basaglar Kwikpen U-100] Mirtazapine [Remeron] 15 mg PO HS PRN 06/17/18 06/22/18 Previous Rx's Medication Instructions Recorded HYDROcodone/APAP 10-325MG [[place] 1 tab PO Q6H PRN #120 tab 06/23/18 10-325] Allergies Allergy/AdvReac Type Severity Reaction Status Date / Time adhesive Allergy skin Verified 03/22/21 01:26 irritation,paper tape is ok Influenza Virus Vaccines Allergy Nausea & Verified 03/22/21 01:26 Vomiting pneumococcal vaccine Allergy Nausea & Verified 03/22/21 01:26 Vomiting vancomycin Allergy Freddie-Andrea Verified 03/22/21 01:26 syndrome amoxicillin trihydrate AdvReac Nausea & Verified 03/22/21 01:26 [From Augmentin] Vomiting potassium clavulanate AdvReac Nausea & Verified 03/22/21 01:26 [From Augmentin] Vomiting methlomacrolate Allergy leg Uncoded 03/22/21 01:26 amputated methyl Allergy methylcrylate-used Uncoded 03/22/21 01:26 in surgery glue Review of Systems ROS Statement: Those systems with pertinent positive or pertinent negative responses have been documented in the HPI. ROS Other: All systems not noted in ROS Statement are negative. 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 , allergic reaction to glue resulting in AKA, 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 .cyst from parotid removed, right and left shoulder, right and left knee surgery, Past Anesthesia/Blood Transfusion Reactions: Postoperative Nausea & Vomiting (PONV) Past Psychological History: Depression Smoking Status: Never smoker Past Alcohol Use History: None Reported Past Drug Use History: None Reported - Past Family History Mother Family Medical History: Cancer Additional Family Medical History / Comment(s): skin cancer General Exam Limitations: no limitations General appearance: alert, in no apparent distress Head exam: Present: atraumatic, normocephalic, normal inspection Eye exam: Present: normal appearance, PERRL, EOMI. Absent: scleral icterus, conjunctival injection, periorbital swelling ENT exam: Present: normal exam, mucous membranes moist Neck exam: Present: normal inspection. Absent: tenderness, meningismus, lymphadenopathy Respiratory exam: Present: normal lung sounds bilaterally. Absent: respiratory distress, wheezes, rales, rhonchi, stridor Cardiovascular Exam: Present: regular rate, normal rhythm, normal heart sounds. Absent: systolic murmur, diastolic murmur, rubs, gallop, clicks GI/Abdominal exam: Present: soft, normal bowel sounds. Absent: distended, tenderness, guarding, rebound, rigid Extremities exam: Present: normal inspection, full ROM, tenderness (Left wrist tenderness and swelling), normal capillary refill. Absent: pedal edema, joint swelling, calf tenderness Back exam: Present: normal inspection Neurological exam: Present: alert, oriented X3, CN II-XII intact Psychiatric exam: Present: normal affect, normal mood Skin exam: Present: warm, dry, intact, normal color. Absent: rash Course Vital Signs 03/22/21 01:21 Temperature 98.2 F Pulse Rate 91 Respiratory 22 Rate Blood Pressure 157/79 O2 Sat by Pulse 97 Oximetry - Reevaluation(s) Reevaluation #1: 03/22/21 01:58 Medical records reviewed Reevaluation #2: 03/22/21 01:59 Patient informed results questions answered Medical Decision Making - Medical Decision Making 60 male status post trip and fall with left wrist pain. No fracture noted, patient can be discharged home - Radiology Data Radiology results: report reviewed (X-ray left wrist is negative for traumatic injury), image reviewed Disposition Clinical Impression: Fall, Contusion of left wrist Disposition: HOME SELF-CARE Condition: Good Instructions (If sedation given, give patient instructions): Wrist Injury (ED) Is patient prescribed a controlled substance at d/c from ED?: No Referrals: Cesia Batista MD [Primary Care Provider] - 1-2 days
--- NOTE | 2021-03-22 01:54 | XR ---
EXAMINATION TYPE: XR wrist complete LT DATE OF EXAM: 03/22/2021 COMPARISON: NONE HISTORY: Fall. Pain TECHNIQUE: 4 views FINDINGS: I see no fracture nor dislocation. There is some narrowing of the radiocarpal joint space. Metacarpals appear intact. There is some probable ankylotic changes of the first MP joint. Scaphoid i s intact. IMPRESSION: No acute abnormality of the left wrist.
== END 2021-03-22 05:19 | disposition home or self-care (01) ==
LOC: EC 01:19
DX: S60.212A Contusion of left wrist, initial encounter (principal); J44.9 Chronic obstructive pulmonary disease, unspecified; E11.9 Type 2 diabetes mellitus without complications; K21.9 Gastro-esophageal reflux disease without esophagitis; Z88.1 Allergy status to other antibiotic agents; Z88.0 Allergy status to penicillin; Z88.8 Allergy status to other drugs, medicaments and biological substances; Z88.7 Allergy status to serum and vaccine; Z91.09 Other allergy status, other than to drugs and biological substances; Z79.4 Long term (current) use of insulin; W01.0XXA Fall on same level from slipping, tripping and stumbling without subsequent striking against object, initial encounter; Y92.009 Unspecified place in unspecified non-institutional (private) residence as the place of occurrence of the external cause
CPT/HCPCS: 99283

== ENCOUNTER 2022-02-23 15:33 | Observation (INO) | payer OTHER ==
--- NOTE | 2022-02-23 16:07 | ED ---
Chest Pain HPI - General Chief Complaint: Chest Pain Stated Complaint: Cardiac Issue Time Seen by Provider: 02/23/22 15:47 Source: patient, RN notes reviewed Mode of arrival: wheelchair Limitations: no limitations - History of Present Illness Initial Comments: 61-year-old male with a history of COPD GERD depression skin cancer diabetes no prior history of heart disease and has of a strong family history who states he had the onset yesterday of an episode of chest pain with palpitations lasting about 10 minutes and recurrent episode today lasting slightly less than 10 minutes. No fevers chills sweats he states he does have a cough some phlegm is not sure of any color. No dizziness or lightheadedness reported. No other modifying factors at this time MD Complaint: chest pain, other - Related Data Home Medications Medication Instructions Recorded Confirmed metFORMIN HCL [Glucophage] 500 mg PO BID 10/20/15 02/23/22 glipiZIDE [Glucotrol] 5 mg PO TID 11/05/17 02/23/22 traZODone HCL 150 mg PO HS 11/05/17 02/23/22 Mirtazapine [Remeron] 15 mg PO HS 06/17/18 02/23/22 Insulin Glargine,Hum.rec.anlog 17 units SQ HS 02/23/22 02/23/22 [Lantus Solostar Pen] Previous Rx's Medication Instructions Recorded HYDROcodone/APAP 10-325MG [[place] 1 tab PO Q6H PRN #120 tab 06/23/18 10-325] Allergies Allergy/AdvReac Type Severity Reaction Status Date / Time adhesive Allergy skin Verified 02/23/22 17:38 irritation,paper tape is ok Influenza Virus Vaccines Allergy Nausea & Verified 02/23/22 17:38 Vomiting pneumococcal vaccine Allergy Nausea & Verified 02/23/22 17:38 Vomiting vancomycin Allergy Freddie-Andrea Verified 02/23/22 17:38 syndrome amoxicillin trihydrate AdvReac Nausea & Verified 02/23/22 17:38 [From Augmentin] Vomiting potassium clavulanate AdvReac Nausea & Verified 02/23/22 17:38 [From Augmentin] Vomiting methlomacrolate Allergy leg Uncoded 02/23/22 15:46 amputated methyl Allergy methylcrylate-used Uncoded 02/23/22 15:46 in surgery glue Review of Systems ROS Statement: Those systems with pertinent positive or pertinent negative responses have been documented in the HPI. ROS Other: All systems not noted in ROS Statement are negative. EKG Findings - EKG Results: EKG: interpreted by ERMD (Evidence of possible atrial fibrillation but likely PACs rate 83 QRS duration 102 QT since QTC 361/41) next deviation no acute ST-T wave changes) 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 , allergic reaction to glue resulting in AKA, 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 .cyst from parotid removed, right and left shoulder, right and left knee surgery, Past Anesthesia/Blood Transfusion Reactions: Postoperative Nausea & Vomiting (PONV) Past Psychological History: Depression Smoking Status: Never smoker Past Alcohol Use History: None Reported Past Drug Use History: None Reported - Past Family History Mother Family Medical History: Cancer Additional Family Medical History / Comment(s): skin cancer General Exam - General Exam Comments Initial Comments: This is a well-developed well-nourished awake alert oriented 4 male Limitations: no limitations General appearance: alert, anxious Head exam: Present: atraumatic, normocephalic, normal inspection Eye exam: Present: normal appearance, PERRL, EOMI. Absent: scleral icterus, conjunctival injection, periorbital swelling ENT exam: Present: normal exam, mucous membranes moist Neck exam: Present: normal inspection, full ROM, other (No stridor JVD or bruits). Absent: tenderness, meningismus, lymphadenopathy Respiratory exam: Present: decreased breath sounds. Absent: respiratory distress, wheezes, rales, rhonchi, stridor Cardiovascular Exam: Present: irregular rhythm. Absent: systolic murmur, diastolic murmur, rubs, gallop, clicks GI/Abdominal exam: Present: soft, normal bowel sounds. Absent: distended, tenderness, guarding, rebound, rigid Extremities exam: Present: full ROM, normal capillary refill, other (Left [id number] amputation). Absent: tenderness, pedal edema, joint swelling, calf tenderness Back exam: Present: normal inspection Neurological exam: Present: alert, oriented X3, CN II-XII intact Psychiatric exam: Present: normal affect, normal mood Skin exam: Present: warm, dry, intact, normal color. 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 Chest Pain MDM - MDM I did discuss the findings with the patient also with Dr. Batista. Patient will be admitted for inpatient evaluation and treatment of COPD exacerbation and chest pain. Also dysrhythmia likely secondary to PACs and COPD exacerbation Critical Care Time Critical Care Time: Yes Total Critical Care Time: 31 Critical Care Time: This included initial presentation with history physical labs x-rays multiple reevaluation patient responsive therapy and treatment multiple discussions with the patient and with the admitting physician admission orders neck mentation above also review of old charting that was available Disposition Clinical Impression: COPD with exacerbation, Chest pain, Dysrhythmia Disposition: ADMITTED IP TO THIS [facility] Condition: Stable Referrals: Cesia Batista MD [Primary Care Provider] - 1-2 days Decision Date: 02/23/22 Decision Time: 20:00
[2022-02-23 16:18] LABS: Basophils # (A) 0.1 k/uL (0-0.2); Basophils % (A) 1 %; Eosinophils # (A) 0.1 k/uL (0-0.7); Eosinophils % (A) 1 %; HCT 50.9 % (39.0-53.0); HGB 16.9 gm/dL (13.0-17.5); Lymphocytes # (A) 1.3 k/uL (1.0-4.8); Lymphocytes % (A) 11 %; MCH 30.1 pg (25.0-35.0); MCHC 33.3 g/dL (31.0-37.0); MCV 90.6 fL (80.0-100.0); Mean Platelet Volume 7.6; Monocytes # (A) 0.5 k/uL (0-1.0); Monocytes % (A) 4 %; Neutrophils # (A) 9.3 k/uL (1.3-7.7); Neutrophils % (A) 82 %; Platelet Count 191 k/uL (150-450); RBC 5.62 m/uL (4.30-5.90); WBC 11.4 k/uL (3.8-10.6)
[2022-02-23 16:27] LABS: ALT 25 U/L (4-49); AST 37 U/L (17-59); African American GFR (CKD) >90 (>60 ml/min/1.73 sqM); Albumin 4.3 g/dL (3.5-5.0); Alkaline Phosphatase 112 U/L (38-126); Anion Gap 7 mmol/L; Blood Urea Nitrogen 10 mg/dL (9-20); Calcium 9.2 mg/dL (8.4-10.2); Carbon Dioxide 24 mmol/L (22-30); Chloride 102 mmol/L (98-107); Glucose 165 mg/dL (74-99); Lipase 86 U/L (23-300); Magnesium 1.9 mg/dL (1.6-2.3); Non-African American GFR(CKD) >90 (>60 ml/min/1.73 sqM); Sodium 133 mmol/L (137-145)
[2022-02-23 16:35] LABS: INR 0.9 (<1.2); Partial Thromboplastin Time 23.9 sec (22.0-30.0); Prothrombin Time 10.2 sec (9.0-12.0)
--- NOTE | 2022-02-23 16:35 | XR ---
EXAMINATION TYPE: XR chest 2V DATE OF EXAM: 02/23/2022 COMPARISON: 07/19/2019 HISTORY: Chest pain TECHNIQUE: 3 view FINDINGS: Heart and mediastinum are normal. Lungs are clear. Diaphragm is normal. Bony thorax is inta ct. Pulmonary vascularity is normal. IMPRESSION: Normal chest. No change.
[2022-02-23 16:40] LABS: Potassium 4.1 mmol/L (3.5-5.1)
[2022-02-23] MEDS ORDERED: IPRATROPIUM-ALBUTEROL 3 ML NEB INHALATION STA (18:01)
[2022-02-23] MEDS ORDERED: methylPREDNISolone SOD SUCCI 125 MG/2 ML VIAL IV STA (18:43)
[2022-02-23] MEDS ORDERED: IPRATROPIUM-ALBUTEROL 3 ML NEB INHALATION PRN (20:18)
[2022-02-23 22:38] LABS: Glucose,Whole Blood 206 mg/dL (70-110)
[2022-02-23] MEDS: INSULIN DETEMIR (LEVEMIR) 100 UNIT/ML SYR SQ SCH (22:38)
[2022-02-23] MEDS: traZODone HCL 50 MG TAB PO SCH (22:39)
[2022-02-23] MEDS: HYDROcodone/APAP 10-325MG 1 EACH TAB PO PRN (22:39)
[2022-02-23] MEDS: metFORMIN 500 MG TAB PO SCH (22:39)
[2022-02-23] MEDS: glipiZIDE 5 MG TAB PO SCH (22:39)
[2022-02-23] MEDS: MIRTAZAPINE 15 MG TAB PO SCH (22:39)
[2022-02-23] MEDS: SODIUM CHLORIDE 0.9% 1,000 ML IV SCH (22:41)
[2022-02-23] MEDS: methylPREDNISolone SOD SUCCI 125 MG/2 ML VIAL IV SCH (23:01)
[2022-02-24] MEDS: methylPREDNISolone SOD SUCCI 125 MG/2 ML VIAL IV SCH ×4 (05:35→23:23)
[2022-02-24 07:11] LABS: Glucose,Whole Blood 197 mg/dL (70-110)
[2022-02-24] MEDS: glipiZIDE 5 MG TAB PO SCH ×3 (09:08→21:31)
[2022-02-24] MEDS: metFORMIN 500 MG TAB PO SCH ×2 (09:08→21:30)
[2022-02-24] MEDS: HYDROcodone/APAP 10-325MG 1 EACH TAB PO PRN ×2 (09:09→21:34)
[2022-02-24] MEDS: LEVOFLOXACIN 500 MG TAB PO SCH (09:09)
[2022-02-24 11:10] LABS: Basophils % (A) 0 %; Eosinophils % (A) 0 %; HCT 53.1 % (39.0-53.0); HGB 17.9 gm/dL (13.0-17.5); Lymphocytes # (A) 0.7 k/uL (1.0-4.8); Lymphocytes % (A) 4 %; MCH 31.7 pg (25.0-35.0); MCHC 33.7 g/dL (31.0-37.0); Mean Platelet Volume 7.5; Monocytes # (A) 0.3 k/uL (0-1.0); Monocytes % (A) 2 %; Neutrophils # (A) 14.5 k/uL (1.3-7.7); Neutrophils % (A) 94 %; Platelet Count 184 k/uL (150-450); RBC 5.65 m/uL (4.30-5.90); RDW 13.4 % (11.5-15.5); WBC 15.5 k/uL (3.8-10.6)
[2022-02-24 11:19] LABS: ALT 23 U/L (4-49); AST 26 U/L (17-59); African American GFR (CKD) >90 (>60 ml/min/1.73 sqM); Albumin 4.2 g/dL (3.5-5.0); Alkaline Phosphatase 110 U/L (38-126); Anion Gap 7 mmol/L; Blood Urea Nitrogen 17 mg/dL (9-20); Calcium 9.3 mg/dL (8.4-10.2); Carbon Dioxide 30 mmol/L (22-30); Chloride 100 mmol/L (98-107); Glucose 170 mg/dL (74-99); Non-African American GFR(CKD) >90 (>60 ml/min/1.73 sqM); Potassium 4.3 mmol/L (3.5-5.1); Sodium 137 mmol/L (137-145); Total Bilirubin 0.5 mg/dL (0.2-1.3); Total Protein 6.9 g/dL (6.3-8.2)
--- NOTE | 2022-02-24 11:51 | P.HPIM ---
History of Present Illness H&P Date: 02/24/22 Jonathan Mullins, is a 61-year-old male who presented to [facility] emergency room with a chief complaint of chest pain shortness of breath and palpitation. Patient stated that he was outdoor on Friday when he started having episode of palpitation and he felt his heart going fast, subsequently he had some chest pain and some difficulty breathing, he went to indoor and he started feeling better, this episode lasted a few minutes, on Friday he had a similar episode with severe palpitation feeling his heart racing, having chest pain and shortness of breath, at this time this episode lasted about 4 hours, and started improving on the afternoon he came to emergency room and started receiving medications. He was evaluated in the emergency room vital examination on presentation revealed a temperature of 98.9 pulse 89 respiration 20 blood pressure 172/84 pulse ox 95% on room air Laboratory data revealed a white blood count of 11.4 hemoglobin 16.9 platelet count 151 sodium 133 potassium 4.1 chloride 102 CO2 24 BUN 10 creatinine 0.65 troponin level was 0.013 BNP 226 Testing in the emergency room revealed EKG done in the emergency room was suspicious for atrial fibrillation with right axis deviation, chest x-ray was within normal limits. In the emergency room, it was felt that patient's symptoms are related mostly to COPD exacerbation he was started on IV steroids and inhaled bronchodilators and was admitted to telemetry floor for further evaluation and treatment Past Medical History Past Medical History: Cancer, COPD, Diabetes Mellitus, GERD/Reflux, Liver Disease, Osteoarthritis (OA) Additional Past Medical History / Comment(s): SKIN CANCER ,2 CYSTs ON LIVER, CYST ON Annette KIDNEY, DERMATOMYOSITIS, hiatal hernia, irregular bowel movements, dry skin History of Any Multi-Drug Resistant Organisms: None Reported Past Surgical History: Cholecystectomy, Ear Surgery, Hernia Repair, Joint Replacement, Orthopedic Surgery, Tonsillectomy Additional Past Surgical History / Comment(s): LEFT AKA - after joint repla cement surgery , allergic reaction to glue resulting in AKA, 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 .cyst from parotid removed, right and left shoulder, right and left knee surgery, Past Anesthesia/Blood Transfusion Reactions: Postoperative Nausea & Vomiting (PONV) Past Psychological History: Depression Smoking Status: Current every day smoker Past Alcohol Use History: None Reported Additional Past Alcohol Use History / Comment(s): started smoking at age 12 smkes 1ppd Past Drug Use History: None Reported Additional Drug Use History / Comment(s): medical marijuana card - Past Family History Mother Family Medical History: Cancer Additional Family Medical History / Comment(s): skin cancer Medications and Allergies Home Medications Medication Instructions Recorded Confirmed Type metFORMIN HCL [Glucophage] 500 mg PO BID 10/20/15 02/23/22 History glipiZIDE [Glucotrol] 5 mg PO TID 11/05/17 02/23/22 History traZODone HCL 150 mg PO HS 11/05/17 02/23/22 History Mirtazapine [Remeron] 15 mg PO HS 06/17/18 02/23/22 History HYDROcodone/APAP 10-325MG [[employer] 1 tab PO Q6H PRN #120 tab 06/23/18 02/23/22 Rx 10-325] Insulin Glargine,Hum.rec.anlog 17 units SQ HS 02/23/22 02/23/22 History [Lantus Solostar Pen] Allergies Allergy/AdvReac Type Severity Reaction Status Date / Time adhesive Allergy skin Verified 02/23/22 17:38 irritation,paper tape is ok Influenza Virus Vaccines Allergy Nausea & Verified 02/23/22 17:38 Vomiting pneumococcal vaccine Allergy Nausea & Verified 02/23/22 17:38 Vomiting vancomycin Allergy Freddie-Andrea Verified 02/23/22 17:38 syndrome amoxicillin trihydrate AdvReac Nausea & Verified 02/23/22 17:38 [From Augmentin] Vomiting potassium clavulanate AdvReac Nausea & Verified 02/23/22 17:38 [From Augmentin] Vomiting methlomacrolate Allergy leg Uncoded 02/23/22 15:46 amputated methyl Allergy methylcrylate-used Uncoded 02/23/22 15:46 in surgery glue Physical Exam Vitals: Vital Signs Temp Pulse Pulse Pulse Resp BP BP 02/24/22 08:00 97.7 F 64 18 136/69 02/24/22 04:00 97.4 F L 56 L 16 142/73 02/23/22 23:06 98.0 F 66 16 140/71 02/23/22 22:01 98.1 F 57 L 64 16 171/93 02/23/22 21:25 98.1 F 70 18 165/79 02/23/22 19:06 74 20 149/86 02/23/22 18:28 69 18 02/23/22 18:20 65 18 02/23/22 16:46 70 02/23/22 16:44 83 22 166/88 02/23/22 15:43 98.9 F 89 20 172/84 Pulse Ox 02/24/22 08:00 96 02/24/22 04:00 94 L 02/23/22 23:06 96 02/23/22 22:01 96 02/23/22 21:25 97 02/23/22 19:06 95 02/23/22 18:28 02/23/22 18:20 02/23/22 16:46 02/23/22 16:44 95 02/23/22 15:43 95 Intake and Output 02/23/22 02/24/22 02/24/22 22:59 06:59 14:59 Intake Total 236 Balance 236 Intake: Oral 236 Other: Voiding Method Urinal Urinal # Voids 1 Weight 60.781 kg In general patient is alert and oriented x 3 in no distress HEENT head normocephalic and atraumatic Neck is supple no JVD no goiter no lymphadenopathy no carotid bruit Chest examination is clear to auscultation no crackles no wheezing Cardiac exam reveals regular heart sounds S1 and S2 no gallops no murmurs Abdomen is soft nontender no organomegaly with normal bowel sounds Extremity exam reveals no edema no cyanosis or clubbing Neurological examination reveals no gross focal deficits Results CBC & Chem 7: 02/24/22 10:52 02/24/22 10:52 Labs: Abnormal Lab Results - Last 24 Hours (Table) 02/23/22 02/23/22 02/23/22 Range/Units 16:10 16:10 22:28 WBC 11.4 H (3.8-10.6) k/uL Neutrophils # 9.3 H (1.3-7.7) k/uL Sodium 133 L (137-145) mmol/L Creatinine 0.65 L (0.66-1.25) mg/dL Glucose 165 H (74-99) mg/dL POC Glucose (mg/dL) 206 H (70-110) mg/dL 02/24/22 Range/Units 07:10 WBC (3.8-10.6) k/uL Neutrophils # (1.3-7.7) k/uL Sodium (137-145) mmol/L Creatinine (0.66-1.25) mg/dL Glucose (74-99) mg/dL POC Glucose (mg/dL) 197 H (70-110) mg/dL Thrombosis Risk Factor Assmnt - Choose All That Apply Any of the Below Risk Factors Present?: No Other Risk Factors: Yes Each Risk Factor Represents 2 Points: Age 61-74 years Thrombosis Risk Factor Assessment Total Risk Factor Score: 2 Thrombosis Risk Factor Assessment Level: Low Risk Assessment and Plan Plan: Episodes of palpitation with subsequence chest pain, cardiology consultation requested Abnormal EKG in the emergency room with reading as atrial fibrillation, however doubt A. 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 For DVT prophylaxis patient was started on subcu Lovenox For GI prophylaxis oral Protonix Patient was counseled in length in regard to smoking cessation Will recheck labs and follow-up in a.m.
[2022-02-24] MEDS: INSULIN ASPART (NovoLOG) 100 UNIT/ML VIAL SQ SCH ×3 (11:54→21:31)
[2022-02-24] MEDS: ENOXAPARIN 40 MG/0.4 ML SYRINGE SQ SCH (12:11)
[2022-02-24 16:25] LABS: Glucose,Whole Blood 187 mg/dL (70-110)
[2022-02-24] MEDS ORDERED: NICOTINE 21MG/24HR PATCH TRANSDERM SCH (17:30)
[2022-02-24 21:19] LABS: Glucose,Whole Blood 164 mg/dL (70-110)
[2022-02-24] MEDS: traZODone HCL 50 MG TAB PO SCH (21:30)
[2022-02-24] MEDS: MIRTAZAPINE 15 MG TAB PO SCH (21:31)
[2022-02-24] MEDS: INSULIN DETEMIR (LEVEMIR) 100 UNIT/ML SYR SQ SCH (21:34)
[2022-02-24] MEDS: SODIUM CHLORIDE 0.9% 1,000 ML IV SCH (22:52)
[2022-02-25 06:25] LABS: Glucose,Whole Blood 178 mg/dL (70-110)
[2022-02-25] MEDS: PANTOPRAZOLE 40 MG TABLET PO SCH (06:42)
[2022-02-25] MEDS: methylPREDNISolone SOD SUCCI 125 MG/2 ML VIAL IV SCH ×4 (06:42→23:18)
[2022-02-25] MEDS: INSULIN ASPART (NovoLOG) 100 UNIT/ML VIAL SQ SCH ×4 (06:43→20:46)
[2022-02-25 11:22] LABS: Glucose,Whole Blood 150 mg/dL (70-110)
[2022-02-25] MEDS: ENOXAPARIN 40 MG/0.4 ML SYRINGE SQ SCH (11:38)
[2022-02-25] MEDS: metFORMIN 500 MG TAB PO SCH ×2 (11:38→20:45)
[2022-02-25] MEDS: glipiZIDE 5 MG TAB PO SCH ×3 (11:38→20:45)
[2022-02-25] MEDS: LEVOFLOXACIN 500 MG TAB PO SCH (11:38)
[2022-02-25] MEDS: HYDROcodone/APAP 10-325MG 1 EACH TAB PO PRN ×2 (11:46→20:46)
--- NOTE | 2022-02-25 11:59 | P.CRDCN ---
History of Present Illness Consult date: 02/25/22 History of present illness: HISTORY OF PRESENT ILLNESS: This is a 61-year-old male with a past medical history significant for diabetes, hypertension, hyperlipidemia, depression, anxiety, and left AKA. Patient follows in the office with Dr. Gillis. We have been asked to see the patient in consultation for abnormal EKG. Patient examined at the bedside. Patient states he presented to the hospital with a chief complaint of SOB and palpitations. Patient also reports having a brief episode of chest pain. The patient states he is feeling better this morning. He denies any chest pain or shortness of breath at this time. EKG performed on arrival reveals sinus mechanism with PACs. Telemetry this morning reveals sinus mechanism with a heart rate in the 50s. * EKG reveals sinus mechanism with PACs * Chest xray negative for acute process * Laboratory data: WBC 15.5. Hemoglobin 17.9. Platelet count 184. D-dimer 0.42. Sodium 137. Potassium 4.3. BUN 17. Creatinine 0.74. Troponin negative 3. * Current home cardiac medications include none * Most recent echocardiogram obtained in 2013 revealed ejection fraction 65%, mild MR, trace TR REVIEW OF SYSTEMS: At the time of my exam: CONSTITUTIONAL: Denies fever or chills. HEENT: Denies blurred vision, vision changes, or eye pain. Denies hemoptysis CARDIOVASCULAR: Denies chest pain. Denies orthopnea. Denies PND. Denies palpitations RESPIRATORY: Denies shortness of breath. GASTROINTESTINAL: Denies abdominal pain. Denies nausea or vomiting. HEMATOLOGIC: Denies bleeding disorders. GENITOURINARY: Denies any blood in urine. SKIN: Denies pruitis. Denies rash. PHYSICAL EXAM: VITAL SIGNS: Reviewed. GENERAL: Well-developed in no acute distress. HEENT: Head is normocephalic. Pupils are equal, round. Sclerae anicteric. Mucous membranes of the mouth are moist. Neck supple. No JVD or thyromegaly LUNGS: Respirations even and unlabored. Lungs essentially clear to auscultation bilaterally. HEART: Regular rate and rhythm. S1 and S2 heard. ABDOMEN: Soft. Nondistended. Nontender. EXTREMITIES: Normal range of motion. No clubbing or cyanosis. Peripheral pulses intact. Left AKA. NEUROLOGIC: Awake and alert. Oriented x 3. ASSESSMENT: Chest pain, troponin negative x 3, ACS ruled out Atrial fibrillation, ruled out, EKG reveals SR with PACS Palpitations Hypertension Hyperlipidemia Diabetes Depression Anxiety History of left AKA PLAN: An acute coronary event has been ruled out Obtain 2D echo to assess cardiac structure and function Check TSH Add Lipitor 40mg at HS Patient to receive event monitor at discharge secondary to his palpitations Further recommendations pending patient's course Nurse practitioner note has been reviewed by physician. Signing provider agrees with the documented findings, assessment, and plan of care. 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 , allergic reaction to glue resulting in AKA, 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 .cyst from parotid removed, right and left shoulder, right and left knee surgery, Past Anesthesia/Blood Transfusion Reactions: Postoperative Nausea & Vomiting (PONV) Past Psychological History: Depression Smoking Status: Current every day smoker Past Alcohol Use History: None Reported Additional Past Alcohol Use History / Comment(s): started smoking at age 12 sm kes 1ppd Past Drug Use History: None Reported Additional Drug Use History / Comment(s): medical marijuana card - Past Family History Mother Family Medical History: Cancer Additional Family Medical History / Comment(s): skin cancer Medications and Allergies Home Medications Medication Instructions Recorded Confirmed Type metFORMIN HCL [Glucophage] 500 mg PO BID 10/20/15 02/23/22 History glipiZIDE [Glucotrol] 5 mg PO TID 11/05/17 02/23/22 History traZODone HCL 150 mg PO HS 11/05/17 02/23/22 History Mirtazapine [Remeron] 15 mg PO HS 06/17/18 02/23/22 History HYDROcodone/APAP 10-325MG [[place] 1 tab PO Q6H PRN #120 tab 06/23/18 02/23/22 Rx 10-325] Insulin Glargine,Hum.rec.anlog 17 units SQ HS 02/23/22 02/23/22 History [Lantus Solostar Pen] Allergies Allergy/AdvReac Type Severity Reaction Status Date / Time adhesive Allergy skin Verified 02/23/22 17:38 irritation,paper tape is ok Influenza Virus Vaccines Allergy Nausea & Verified 02/23/22 17:38 Vomiting pneumococcal vaccine Allergy Nausea & Verified 02/23/22 17:38 Vomiting vancomycin Allergy Shabbir Verified 02/23/22 17:38 syndrome amoxicillin trihydrate AdvReac Nausea & Verified 02/23/22 17:38 [From Augmentin] Vomiting potassium clavulanate AdvReac Nausea & Verified 02/23/22 17:38 [From Augmentin] Vomiting methlomacrolate Allergy leg Uncoded 02/23/22 15:46 amputated methyl Allergy methylcrylate-used Uncoded 02/23/22 15:46 in surgery glue Physical Exam Vitals: Vital Signs Temp Pulse Pulse Resp BP BP Pulse Ox 02/25/22 08:08 95 02/25/22 08:00 97.7 F 88 64 12 137/77 96 02/25/22 04:00 97.4 F L 63 18 137/74 96 02/24/22 23:57 66 16 152/92 95 02/24/22 20:00 98 F 66 17 161/90 98 02/24/22 15:17 98.3 F 105 H 18 135/70 94 L 02/24/22 12:00 97.7 F 68 16 128/61 98 Intake and Output 02/24/22 02/25/22 02/25/22 22:59 06:59 14:59 Intake Total 0 Balance 0 Intake: Oral 0 Other: Voiding Method Urinal # Voids 0 2 Results 02/24/22 10:52 02/24/22 10:52 Cardiac Enzymes 02/25/22 Range/Units 10:12 Troponin I <0.012 (0.000-0.034) ng/mL Current Medications Generic Name Dose Route Start Last Admin Trade Name Freq PRN Reason Stop Dose Admin Hydrocodone Bitart/Acetaminophen 1 each 02/23/22 20:19 02/25/22 11:46 Hydrocodone/Apap 10-325mg 1 Each Tab PO 1 each Q6H PRN Administration Pain Albuterol/Ipratropium 3 ml 02/23/22 20:18 Ipratropium-Albuterol 3 Ml Neb INHALATION RT-Q4H PRN Shortness Of Breath Or Wheezing Atorvastatin Calcium 40 mg 02/25/22 21:00 Atorvastatin 40 Mg Tab PO HS VARUN Enoxaparin Sodium 40 mg 02/24/22 12:15 02/25/22 11:38 Enoxaparin 40 Mg/0.4 Ml Syringe SQ 40 mg DAILY VARUN Administration Glipizide 5 mg 02/23/22 22:00 02/25/22 11:38 Glipizide 5 Mg Tab PO 5 mg TID VARUN Administration Sodium Chloride 1,000 mls @ 20 mls/hr 02/23/22 20:30 02/24/22 22:52 Saline 0.9% IV Not Given .Q24H VARUN Insulin Aspart 0 unit 02/24/22 12:30 02/25/22 11:38 Insulin Aspart (Novolog) 100 Unit/Ml Vial SQ 2 unit ACHS VARUN Administration Protocol Insulin Detemir 17 unit 02/23/22 21:00 02/24/22 21:34 Insulin Detemir (Levemir) 100 Unit/Ml Syr SQ 17 unit HS VARUN Administration Levofloxacin 500 mg 02/24/22 09:00 02/25/22 11:38 Levofloxacin 500 Mg Tab PO 03/03/22 09:01 500 mg DAILY VARUN Administration Protocol Metformin HCl 500 mg 02/23/22 21:00 02/25/22 11:38 Metformin 500 Mg Tab PO 500 mg BID VARUN Administration Methylprednisolone Sodium Succinate 60 mg 02/24/22 00:00 02/25/22 11:39 Methylprednisolone Sod Succi 125 Mg/2 Ml Vial IV 60 mg Q6HR VARUN Administration Mirtazapine 15 mg 02/23/22 21:00 02/24/22 21:31 Mirtazapine 15 Mg Tab PO 15 mg HS [facility] Administration Nicotine 1 patch 02/25/22 18:00 Nicotine 21mg/24hr Patch TRANSDERM DAILY@1800 [facility] Pantoprazole Sodium 40 mg 02/25/22 07:30 02/25/22 06:42 Pantoprazole 40 Mg Tablet PO 40 mg [id number] VARUN Administration Trazodone HCl 150 mg 02/23/22 21:00 02/24/22 21:30 Trazodone Hcl 50 Mg Tab PO 150 mg HS VRAUN Administration Intake and Output 02/24/22 02/25/22 02/25/22 22:59 06:59 14:59 Intake Total 0 Balance 0 Intake: Oral 0 Other: Voiding Method Urinal # Voids 0 2 02/24/22 10:52 02/24/22 10:52
[2022-02-25 12:05] LABS: T4, Free (Free Thyroxine) 1.14 ng/dL (0.78-2.19)
[2022-02-25 16:30] LABS: Glucose,Whole Blood 235 mg/dL (70-110)
[2022-02-25] MEDS ORDERED: NICOTINE 21MG/24HR PATCH TRANSDERM SCH (18:00)
--- NOTE | 2022-02-25 18:37 | P.PN ---
Subjective Progress Note Date: 02/25/22 Jonathan Mullins, is a 61-year-old male who presented to [facility] emergency room with a chief complaint of chest pain shortness of breath and palpitation. Patient stated that he was outdoor on Friday when he started having episode of palpitation and he felt his heart going fast, subsequently he had some chest pain and some difficulty breathing, he went to indoor and he started feeling better, this episode lasted a few minutes, on Friday he had a similar episode with severe palpitation feeling his heart racing, having chest pain and shortness of breath, at this time this episode lasted about 4 hours, and started improving on the afternoon he came to emergency room and started receiving medications. He was evaluated in the emergency room vital examination on presentation revealed a temperature of 98.9 pulse 89 respiration 20 blood pressure 172/84 pulse ox 95% on room air Laboratory data revealed a white blood count of 11.4 hemoglobin 16.9 platelet count 151 sodium 133 potassium 4.1 chloride 102 CO2 24 BUN 10 creatinine 0.65 troponin level was 0.013 BNP 226 Testing in the emergency room revealed EKG done in the emergency room was suspicious for atrial fibrillation with right axis deviation, chest x-ray was within normal limits. In the emergency room, it was felt that patient's symptoms are related mostly to COPD exacerbation he was started on IV steroids and inhaled bronchodilators and was admitted to telemetry floor for further evaluation and treatment On 12/26/2021 patient was seen and examined on the telemetry floor he is alert and oriented 3 in no apparent distress he is still complaining of shortness of breath otherwise he denies any complaints there is no fever or chills no headache or dizziness no chest pain no cough no palpitation no nausea or vomiting no abdominal pain no diarrhea no blood in the stools no burning with urination no frequency or urgency and no hematuria echocardiogram was done today results are still not available patient is still maintained on IV Solu-Medrol for COPD exacerbation continue with current management will follow up in a.m. Objective - Vital Signs Vital signs: Vital Signs Temp 97.7 F 02/25/22 08:00 Pulse 64 02/25/22 08:00 Resp 12 02/25/22 08:00 BP 137/77 02/25/22 08:00 Pulse Ox 95 02/25/22 08:08 FiO2 Intake & Output 02/24/22 02/25/22 02/25/22 18:59 06:59 18:59 Intake Total 950 Output Total 350 Balance 600 Intake: Oral 950 Output: Urine 350 Other: Voiding Method Urinal Urinal # Voids 2 - Exam In general patient is alert and oriented x 3 in no distress HEENT head normocephalic and atraumatic Neck is supple no JVD no goiter no lymphadenopathy no carotid bruit Chest examination is clear to auscultation no crackles no wheezing Cardiac exam reveals regular heart sounds S1 and S2 no gallops no murmurs Abdomen is soft nontender no organomegaly with normal bowel sounds Extremity exam reveals no edema no cyanosis or clubbing Neurological examination reveals no gross focal deficits - Labs CBC & Chem 7: 02/24/22 10:52 02/24/22 10:52 Labs: Abnormal Lab Results - Last 24 Hours (Table) 02/24/22 02/24/22 02/24/22 Range/Units 10:52 10:52 16:20 WBC 15.5 H (3.8-10.6) k/uL Hgb 17.9 H (13.0-17.5) gm/dL Hct 53.1 H (39.0-53.0) % Neutrophils # 14.5 H (1.3-7.7) k/uL Lymphocytes # 0.7 L (1.0-4.8) k/uL Glucose 170 H (74-99) mg/dL POC Glucose (mg/dL) 187 H (70-110) mg/dL 02/24/22 02/25/22 Range/Units 21:16 06:23 WBC (3.8-10.6) k/uL Hgb (13.0-17.5) gm/dL Hct (39.0-53.0) % Neutrophils # (1.3-7.7) k/uL Lymphocytes # (1.0-4.8) k/uL Glucose (74-99) mg/dL POC Glucose (mg/dL) 164 H 178 H (70-110) mg/dL Assessment and Plan Plan: Episodes of palpitation with subsequence chest pain, cardiology consultation requested Abnormal EKG in the emergency room with reading as atrial fibrillation, however doubt A. 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 For DVT prophylaxis patient was started on subcu Lovenox For GI prophylaxis oral Protonix Patient was counseled in length in regard to smoking cessation Will recheck labs and follow-up in a.m.
[2022-02-25 20:19] LABS: Glucose,Whole Blood 143 mg/dL (70-110)
[2022-02-25] MEDS: MIRTAZAPINE 15 MG TAB PO SCH (20:45)
[2022-02-25] MEDS: traZODone HCL 50 MG TAB PO SCH (20:45)
[2022-02-25] MEDS: INSULIN DETEMIR (LEVEMIR) 100 UNIT/ML SYR SQ SCH (20:46)
[2022-02-25] MEDS ORDERED: ATORVASTATIN 40 MG TAB PO SCH (21:00)
[2022-02-26] MEDS: SODIUM CHLORIDE 0.9% 1,000 ML IV SCH (00:05)
[2022-02-26 06:13] LABS: Glucose,Whole Blood 210 mg/dL (70-110)
[2022-02-26] MEDS: methylPREDNISolone SOD SUCCI 125 MG/2 ML VIAL IV SCH (06:23)
[2022-02-26] MEDS: INSULIN ASPART (NovoLOG) 100 UNIT/ML VIAL SQ SCH (06:24)
[2022-02-26] MEDS: PANTOPRAZOLE 40 MG TABLET PO SCH (06:24)
--- NOTE | 2022-02-26 07:32 | CA ---
Transthoracic Echo Report Name: Jonathan Mullins Age: 61 Gender: M : 1960 Exam Date: 02/25/2022 16:18 Exam Location: [place] [facility] Ht (in): 72 Wt (lb): 134 Ordering Physician: Cesia Batista MD Attending/Referring Phys: Sponsorship Manager Yady Vanessa RDCS Procedure CPT: Indications: Chest Pain Cardiac Hx: Technical Quality: Fair Contrast 1: Total Dose (mL): Contrast 2: Total Dose (mL): MEASUREMENTS (Male / Female) Normal Values 2D ECHO LV Diastolic Diameter PLAX 4.1 cm 4.2 - 5.9 / 3.9 - 5.3 cm LV Systolic Diameter PLAX 2.5 cm IVS Diastolic Thickness 1.0 cm 0.6 - 1.0 / 0.6 - 0.9 cm LVPW Diastolic Thickness 1.3 cm 0.6 - 1.0 / 0.6 - 0.9 cm LV Relative Wall Thickness 0.6 RV Internal Dim ED PLAX 2.7 cm LA Volume 33.4 cm??? 18 - 58 / 22 - 52 cm??? M-MODE Aortic Root Diameter MM 3.3 cm LA Systolic Diameter MM 3.0 cm LA Ao Ratio MM 0.9 AV Cusp Separation MM 2.3 cm DOPPLER AV Peak Velocity 104.2 cm/s AV Peak Gradient 4.3 mmHg LVOT Peak Velocity 106.7 cm/s LVOT Peak Gradient 4.6 mmHg MV Area PHT 3.8 cm??? Mitral E Point Velocity 83.1 cm/s Mitral A Point Velocity 85.8 cm/s Mitral E to A Ratio 1.0 MV Deceleration Time 201.9 ms MV E' Velocity 8.0 cm/s Mitral E to MV E' Ratio 10.4 TR Peak Velocity 131.0 cm/s TR Peak Gradient 6.9 mmHg Right Ventricular Systolic Press 11.9 mmHg FINDINGS Left Ventricle Mildly increased left ventricular wall thickness. Normal left ventricular systolic function with no obvious regional wall motion abnormalities. Normal left ventricular diastolic filling pattern. Left ventricular ejection fraction is estimated at 55-60 %. Right Ventricle Normal right ventricular size and function. Right ventricular systolic pressure within normal limits. Right Atrium Normal right atrial size. Left Atrium Normal left atrial size. No evidence for an atrial septal defect. Mitral Valve No mitral stenosis, regurgitation or prolapse. Aortic Valve No aortic valve stenosis or regurgitation. Tricuspid Valve Mild tricuspid regurgitation. Pulmonic Valve Trace pulmonic regurgitation. Pericardium No pericardial effusion. Aorta Normal size aortic root and proximal ascending aorta. CONCLUSIONS Normal left ventricular ejection fraction 55-60% Normal diastolic function No mitral regurgitation Mild tricuspid regurgitation No pericardial effusion Previewed by: Dr. Manuel Arvizu DO (Electronically Signed) Final Date: 26 February 2022 07:32
[2022-02-26 07:53] VITALS: BP 142/72; RESP 17; TEMP 98.7
[2022-02-26 08:41] LABS: Basophils % (A) 0 %; Eosinophils % (A) 0 %; Lymphocytes # (A) 0.8 k/uL (1.0-4.8); Lymphocytes % (A) 4 %; MCH 30.5 pg (25.0-35.0); MCHC 32.7 g/dL (31.0-37.0); MCV 93.2 fL (80.0-100.0); Mean Platelet Volume 7.7; Monocytes # (A) 0.5 k/uL (0-1.0); Monocytes % (A) 3 %; Neutrophils # (A) 18.6 k/uL (1.3-7.7); Neutrophils % (A) 93 %; Platelet Count 182 k/uL (150-450); RBC 5.26 m/uL (4.30-5.90); RDW 12.9 % (11.5-15.5); WBC 19.9 k/uL (3.8-10.6)
[2022-02-26 08:55] LABS: ALT 17 U/L (4-49); AST 17 U/L (17-59); African American GFR (CKD) >90 (>60 ml/min/1.73 sqM); Albumin 3.5 g/dL (3.5-5.0); Alkaline Phosphatase 116 U/L (38-126); Anion Gap 4 mmol/L; Blood Urea Nitrogen 22 mg/dL (9-20); Calcium 8.8 mg/dL (8.4-10.2); Carbon Dioxide 32 mmol/L (22-30); Chloride 100 mmol/L (98-107); Glucose 208 mg/dL (74-99); Non-African American GFR(CKD) >90 (>60 ml/min/1.73 sqM); Potassium 4.1 mmol/L (3.5-5.1); Sodium 136 mmol/L (137-145); Total Bilirubin 0.4 mg/dL (0.2-1.3); Total Protein 5.9 g/dL (6.3-8.2)
[2022-02-26] MEDS: metFORMIN 500 MG TAB PO SCH (09:01)
[2022-02-26] MEDS: LEVOFLOXACIN 500 MG TAB PO SCH (09:01)
[2022-02-26] MEDS: glipiZIDE 5 MG TAB PO SCH (09:01)
[2022-02-26] MEDS: ENOXAPARIN 40 MG/0.4 ML SYRINGE SQ SCH (09:02)
[2022-02-26 11:27] VITALS: PULSE 79
[2022-02-26 11:42] LABS: Glucose,Whole Blood 207 mg/dL (70-110)
--- NOTE | 2022-03-26 13:13 | EM ---
Event monitor shows sinus mechanism in sinus tachycardia Mild sinus bradycardia of 41 beats a minute in the early hours the morning Occasional PACs Occasional nonsustained atrial tachycardia, slow and brief MTDD
--- NOTE | 2022-04-24 13:23 | P.DS ---
Providers Date of admission: 02/23/22 20:18 Expected date of discharge: 02/26/22 Attending physician: Cesia Batista Consults: 02/24/22 10:48 Consult Physician Routine Consulting Provider: Davonte To Consult Reason/Comments: abnormal EKG Do you want consulting provider notified?: Yes Primary care physician: Cesia [facility] Course: Diagnosis on discharge: Episodes of palpitation with subsequence chest pain, cardiology consultation requested Abnormal EKG in the emergency room with reading as atrial fibrillation, however doubt A. 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 Patient stated that he was outdoor on Friday morning when he started having episode of palpitation and he felt his heart going fast, subsequently he had some chest pain and some difficulty breathing, he went to indoor and he started feeling better, this episode lasted a few minutes, on Friday morning he had a similar episode with severe palpitation feeling his heart racing, having chest pain and shortness of breath, at this time this episode lasted about 4 hours, and started improving on the afternoon he came to emergency room and started receiving medications. He was evaluated in the emergency room vital examination on presentation revealed a temperature of 98.9 pulse 89 respiration 20 blood pressure 172/84 pulse ox 95% on room air Laboratory data revealed a white blood count of 11.4 hemoglobin 16.9 platelet count 151 sodium 133 potassium 4.1 chloride 102 CO2 24 BUN 10 creatinine 0.65 troponin level was 0.013 BNP 226 Testing in the emergency room revealed EKG done in the emergency room was suspicious for atrial fibrillation with right axis deviation, chest x-ray was within normal limits. In the emergency room, it was felt that patient's symptoms are related mostly to COPD exacerbation he was started on IV steroids and inhaled bronchodilators and was admitted to telemetry floor for further evaluation and treatment On 12/26/2021 patient was seen and examined on the telemetry floor he is alert and oriented 3 in no apparent distress he is still complaining of shortness of breath otherwise he denies any complaints there is no fever or chills no headache or dizziness no chest pain no cough no palpitation no nausea or vomiting no abdominal pain no diarrhea no blood in the stools no burning with urination no frequency or urgency and no hematuria echocardiogram was done today results are still not available patient is still maintained on IV Solu-Medrol for COPD exacerbation continue with current management will follow up in a.m. On 12/27/2021 patient is alert and oriented 3. Patient will be discharged home on prednisone taper, Lipitor and nicotine patch. Patient educated on importance of complete smoking cessation patient to follow-up with PCP consulting providers for further management Patient Condition at Discharge: Stable Plan - Discharge Summary Discharge Rx Participant: No New Discharge Prescriptions: New Ipratropium-Albuterol Nebulize [Duoneb 0.5 mg-3 mg/3 ml Soln] 3 ml INHALATION RT-Q4H PRN each PRN Reason: Shortness Of Breath Or Wheezing Nicotine 21Mg/24Hr Patch [Habitrol] 1 patch TRANSDERM DAILY@1800 patch Atorvastatin [Lipitor] 40 mg PO HS tab predniSONE 0 mg PO DIRECTED 12 Days #30 tab Continue metFORMIN HCL [Glucophage] 500 mg PO BID glipiZIDE [Glucotrol] 5 mg PO TID traZODone HCL 150 mg PO HS Mirtazapine [Remeron] 15 mg PO HS HYDROcodone/APAP 10-325MG [[place] 10-325] 1 tab PO Q6H PRN #120 tab PRN Reason: Pain Insulin Glargine,Hum.rec.anlog [Lantus Solostar Pen] 17 units SQ HS Discharge Medication List metFORMIN HCL [Glucophage] 500 mg PO BID 10/20/15 [History] glipiZIDE [Glucotrol] 5 mg PO TID 11/05/17 [History] traZODone HCL 150 mg PO HS 11/05/17 [History] Mirtazapine [Remeron] 15 mg PO HS 06/17/18 [History] HYDROcodone/APAP 10-325MG [[place] 10-325] 1 tab PO Q6H PRN #120 tab 06/23/18 [Rx] Insulin Glargine,Hum.rec.anlog [Lantus Solostar Pen] 17 units SQ HS 02/23/22 [History] Atorvastatin [Lipitor] 40 mg PO HS tab 02/26/22 [Rx] Ipratropium-Albuterol Nebulize [Duoneb 0.5 mg-3 mg/3 ml Soln] 3 ml INHALATION RT-Q4H PRN each 02/26/22 [Rx] Nicotine 21Mg/24Hr Patch [Habitrol] 1 patch TRANSDERM DAILY@1800 patch 02/26/22 [Rx] predniSONE 0 mg PO DIRECTED 12 Days #30 tab 02/26/22 [Rx] Follow up Appointment(s)/Referral(s): Cesia Batista MD [Primary Care Provider] - 1-2 days Patient Instructions/Handouts: COPD (Chronic Obstructive Pulmonary Disease) (DC), [employer]iques (ED) Discharge Disposition: HOME SELF-CARE
== END 2022-02-26 12:57 | disposition home or self-care (01) ==
LOC: EC 15:33 → INTOOBSV 20:18 → 3SCARD 20:18 → UNDODISIN 02-26 12:57
PROVIDERS: ADMIT Internal Medicine; ATTEND Internal Medicine
DX: R07.89 Other chest pain (principal); J44.1 Chronic obstructive pulmonary disease with (acute) exacerbation; R94.31 Abnormal electrocardiogram [ECG] [EKG]; I49.1 Atrial premature depolarization; I10 Essential (primary) hypertension; K21.9 Gastro-esophageal reflux disease without esophagitis; M19.90 Unspecified osteoarthritis, unspecified site; E78.5 Hyperlipidemia, unspecified; F41.9 Anxiety disorder, unspecified; E11.9 Type 2 diabetes mellitus without complications; I07.1 Rheumatic tricuspid insufficiency; K76.89 Other specified diseases of liver; M33.13 Other dermatomyositis without myopathy; F32.A Depression, unspecified; F17.210 Nicotine dependence, cigarettes, uncomplicated; Z71.6 Tobacco abuse counseling; Z79.84 Long term (current) use of oral hypoglycemic drugs; Z79.4 Long term (current) use of insulin; Z79.899 Other long term (current) drug therapy; Z88.1 Allergy status to other antibiotic agents; Z88.0 Allergy status to penicillin; Z88.7 Allergy status to serum and vaccine; Z88.8 Allergy status to other drugs, medicaments and biological substances; Z91.048 Other nonmedicinal substance allergy status; Z89.612 Acquired absence of left leg above knee; Z85.828 Personal history of other malignant neoplasm of skin; Z82.49 Family history of ischemic heart disease and other diseases of the circulatory system; Z80.8 Family history of malignant neoplasm of other organs or systems
CPT/HCPCS: 96376 ×4; 96372 ×3; 96374; 99291; 36415; 94640; 94760; 93005; 93306; 93270; 85379; 84439; 83880; 80053 ×3; 84443 ×2; 83690; 83735; 84484 ×3; 85025 ×3; 85610; 85730; 83036; 71046; G0378 ×4; S4990 ×2; J2930 ×4; J1650 ×3

== ENCOUNTER → 2023-08-14 | Outpatient (CLI) | payer MEDICARE, OTHER ==
--- NOTE | 2023-08-14 16:14 | XR ---
EXAMINATION TYPE: XR chest 2V DATE OF EXAM: 08/14/2023 3:43 PM CLINICAL INDICATION:Male, 63 years old with history of R63.4; [facility] COMPARISON: Chest radiographs from 02/23/2022. TECHNIQUE: XR chest 2V Frontal and lateral views of the chest. FINDINGS: Lungs/Pleura: There is no evidence of pleural effusion, focal consolidation, or pneumothorax. Pulmonary vascularity: Unremarkable. Heart/mediastinum: Cardiomediastinal silhouette is unremarkable. Musculoskeletal: No acute osseous pathology. IMPRESSION: No acute cardiopulmonary disease/process.
== END | disposition home or self-care (01) ==
LOC: RADXRMAIN 15:33
PROVIDERS: ATTEND Internal Medicine
DX: R63.4 Abnormal weight loss (principal)
CPT/HCPCS: 71046

== ENCOUNTER → 2024-01-02 | Outpatient (CLI) | payer MEDICARE, OTHER ==
--- NOTE | 2024-01-07 15:31 | CT ---
EXAMINATION TYPE: CT brain wo con CT DLP: 1029.90 mGycm, Automated exposure control for dose reduction was used. DATE OF EXAM: 01/02/2024 3:25 PM COMPARISON: CT 11/05/2017. CLINICAL INDICATION:Male, 63 years old with history of W19.XXA UNSPECIFIED FALL, INITIAL ENCOUNTER S0 9.90, recent fall with LOC, neck pain TECHNIQUE: Brain: Axial CT images of the brain were obtained with coronal and sagittal reformats created and rev iewed. Contrast used: None. Oral contrast used: None. FINDINGS: Extra-axial spaces: No abnormal extra-axial fluid collections. Basilar cisterns are patent. Ventricular system: Ventricles appear mildly dilated in proportion to the degree of cerebral atrophy. Cerebral parenchyma: No increased attenuation to suggest acute intraparenchymal hemorrhage. The gra y-white matter interface appears maintained. Mild generalized brain atrophy. Scattered hypoattenuat ing areas are seen within the cerebral white matter, nonspecific but most often seen with chronic joy rovascular ischemic changes; mild in degree. Cerebellum: No acute abnormality. Mildly prominent suzi cisterna magna. Mass effect: No evidence of mass effect or midline shift. Intracranial vasculature: Unremarkable Soft tissues: No acute or concerning abnormality. Visualized orbits: Orbital contents appear grossly intact. Calvarium/osseous structures: No evidence of calvarial fracture. Paranasal sinuses and mastoid air cells: Clear. MRI is more sensitive for detecting acute processes such as infarct, and may be considered if clinica lly warranted. IMPRESSION: No acute intracranial CT abnormality.
--- NOTE | 2024-01-07 15:49 | CT ---
EXAMINATION TYPE: CT soft tissue neck wo con CT DLP: 485.80 mGycm, Automated exposure control for dose reduction was used. DATE OF EXAM: 01/02/2024 3:25 PM COMPARISON: None. CLINICAL INDICATION:Male, 63 years old with history of W19.XXA UNSPECIFIED FALL, INITIAL ENCOUNTER S0 9.90; H, recent fall with LOC, neck pain TECHNIQUE: Standard enhanced CT of the neck soft tissues. Axial sections with coronal and sagittal r eformats were obtained. Contrast used: mL of , Oral contrast used: none. FINDINGS: Examination of the neck soft tissues is markedly limited without IV contrast. Brain: Visualized portions are grossly unremarkable. Orbits: Unremarkable Sinuses: Grossly unremarkable. Spaces of the neck: Clear and symmetric. Musculoskeletal: No acute osseous pathology. Minimal degenerative changes of the cervical spine. Some straightening of the normal cervical lordosis likely positional. Surgical anchors in the bilateral h umeral heads. Lymph nodes: Multiple nonenlarged lymph nodes are seen along both anterior chains of the neck. Vascular structures: Vasculature not well assessed without contrast. There are scattered arteriovascu lar calcifications. Thoracic Inlet/airway: Airway is patent. The lung apices are free of consolidation or pneumothorax. M oderate biapical emphysematous changes. Soft tissues/Thyroid: Thyroid contains a couple tiny hypodensities on the left. Remainder of the soft tissues are unremarkable. Other: none. IMPRESSION 1. No evidence of an acute or significant abnormality of the neck. 2. Moderate biapical pulmonary emphysema.
== END | disposition home or self-care (01) ==
LOC: RADCTMAIN 14:48
PROVIDERS: ATTEND Internal Medicine
DX: S09.90XA Unspecified injury of head, initial encounter (principal); J43.9 Emphysema, unspecified; W19.XXXA Unspecified fall, initial encounter
CPT/HCPCS: 70450; 70490

== ENCOUNTER → 2024-05-06 | Outpatient (CLI) | payer MEDICARE, OTHER ==
--- NOTE | 2024-05-06 12:35 | XR ---
EXAMINATION TYPE: XR chest 2V DATE OF EXAM: 05/06/2024 COMPARISON: 08/14/2023 TECHNIQUE: PA and lateral views submitted. HISTORY: Cough FINDINGS: The lungs are clear and there is no pneumothorax, pleural effusion, or focal pneumonia. Heart size normal and no overt failure. Osseous structures demonstrate hypertrophic and degenerative changes of the spine. Emphysematous changes. Postsurgical changes bilateral shoulder. Hypertrophic and degenerat brandan change of the spine. Apical pleural thickening greater laterally in the left upper lobe. IMPRESSION: 1. No acute process. 2. COPD. Apical pleural thickening correlate clinically. [facility], , 05/06/2024 12:33 PM
== END | disposition home or self-care (01) ==
LOC: RADXRMAIN 12:12
PROVIDERS: ATTEND Internal Medicine
DX: R05.9 Cough, unspecified
CPT/HCPCS: 71046

== ENCOUNTER 2024-07-26 06:59 | Day surgery (SDC) | payer MEDICARE, OTHER ==
[2024-07-23 10:57] VITALS: BMI 15.6
[~2024-07-26 06:59] MED LIST changes: -LACTATED RINGERS 1,000 ML IV SCH; -LIDOCAINE 1% 20 ML VIAL (10MG/ML) FOR IV START INTRADERMA PRN; +Pre Op ABX Message 1 EACH MISC MISCELLANE ONE
[2024-07-26] MEDS ORDERED: MIDAZOLAM 2 MG/2 ML VIAL IV PRN (07:31)
[2024-07-26 08:07] LABS: Glucose,Whole Blood 102 mg/dL (70-110)
[2024-07-26] MEDS: IV FLUID CONTINUATION 1,000 ML IV ONE (08:09)
[2024-07-26 08:16] LABS: Basophils # (A) 0.1 k/uL (0-0.2); Basophils % (A) 1 %; Eosinophils # (A) 0.3 k/uL (0-0.7); Eosinophils % (A) 4 %; HCT 46.8 % (39.0-53.0); HGB 15.4 gm/dL (13.0-17.5); Lymphocytes # (A) 2.3 k/uL (1.0-4.8); Lymphocytes % (A) 24 %; MCH 30.8 pg (25.0-35.0); MCV 93.4 fL (80.0-100.0); Mean Platelet Volume 7.4; Monocytes # (A) 0.6 k/uL (0-1.0); Monocytes % (A) 6 %; Neutrophils # (A) 6.1 k/uL (1.3-7.7); Neutrophils % (A) 64 %; Platelet Count 162 k/uL (150-450); RBC 5.01 m/uL (4.30-5.90); WBC 9.6 k/uL (3.8-10.6)
[2024-07-26] MEDS: IPRATROPIUM-ALBUTEROL 3 ML NEB INHALATION STA (08:27)
[2024-07-26] MEDS: ONDANSETRON 4 MG/2 ML VIAL IVP ONE (08:28)
[2024-07-26] MEDS: ACETAMINOPHEN TAB 500 MG TAB PO PRN (08:28)
[2024-07-26] MEDS: LACTATED RINGERS 1,000 ML IV SCH (08:28)
[2024-07-26] MEDS: DEXAMETHASONE SOD PHOSPHATE 4 MG/ML 1 ML VIAL IV ONE (08:28)
[2024-07-26] MEDS: HEPARIN SODIUM,PORCINE 5,000 UNIT/ML 1 ML VIAL SQ PRN (08:29)
[2024-07-26 08:30] LABS: African American GFR (CKD) >90 (>60 ml/min/1.73 sqM); Anion Gap 2 mmol/L; Blood Urea Nitrogen 22 mg/dL (9-20); Calcium 9.2 mg/dL (8.4-10.2); Carbon Dioxide 29 mmol/L (22-30); Chloride 106 mmol/L (98-107); Glucose 102 mg/dL (74-99); Non-African American GFR(CKD) >90 (>60 ml/min/1.73 sqM); Sodium 137 mmol/L (137-145)
[2024-07-26 08:32] LABS: Potassium 4.7 mmol/L (3.5-5.1)
[2024-07-26] MEDS ORDERED: LIDOCAINE 1% INJ 10MG/ML (20 ML MDV) ONE (08:51)
[2024-07-26] MEDS ORDERED: PHENYLEPHRINE 10 MG/ML VIAL ONE (08:51)
[2024-07-26] MEDS ORDERED: fentaNYL (PF) 50 MCG/ML 2 ML AMP ONE (08:51)
[2024-07-26] MEDS ORDERED: PROPOFOL 10 MG/ML 20 ML VIAL IV ONE (08:51)
[2024-07-26] MEDS ORDERED: MIDAZOLAM 2 MG/2 ML VIAL ONE (08:51)
[2024-07-26] MEDS: LIDOCAINE 1%-EPI 1:100,000 20 ML VIAL SQ ONE (09:16)
[2024-07-26 09:46] VITALS: TEMP 96.9
[2024-07-26] MEDS: HYDROmorphone 0.5 MG/0.5 ML SYRINGE IVP PRN (09:54)
--- NOTE | 2024-07-26 10:11 | P.OP ---
Date of Procedure: 07/26/24 Preoperative Diagnosis: Myositis Postoperative Diagnosis: Myositis Procedure(s) Performed: Right thigh muscle biopsy Anesthesia: SHEFALI Surgeon: Pollo Decker Estimated Blood Loss (ml): 5 Pathology: other (Right thigh muscle biopsy) Condition: stable Disposition: PACU Description of Procedure: The patient was placed on the operative table in the supine position. He received general endotracheal anesthesia. H his right thigh was prepped and draped in usual sterile fashion. The skin was incised over the anterior me thigh. Using electrocautery the subcutaneous were divided. The fascia exposed. The fascia then opened with a pair of Metzenbaum scissors. Using a hemostat the thigh muscle was dissected. And then the thigh muscle was ligated proximally distally with a hemostat. And then divided. With sharp dissection. And then the proximal and distal ends were suture-ligated with 0 Vicryl ties. There is no bleeding seen. The fascia was reapproximated using 0 Vicryl suture. S there was no bleeding in the subcu tissues. The skin was closed with 3-0 nylon suture. Sterile dressing applied. Patient tolerated well. He was sent to recovery in stable condition.
[2024-07-26 10:37] VITALS: PULSE 77; RESP 18
[2024-07-26 11:08] VITALS: BP 157/68
[2024-07-26 11:17] LABS: Glucose,Whole Blood 189 mg/dL (70-110)
== END 2024-07-26 11:33 | disposition home or self-care (01) ==
LOC: OR 06:59
PROVIDERS: ATTEND Surgery
DX: M33.02 Juvenile dermatomyositis with myopathy (principal); J44.9 Chronic obstructive pulmonary disease, unspecified; E11.9 Type 2 diabetes mellitus without complications; K21.9 Gastro-esophageal reflux disease without esophagitis; M19.90 Unspecified osteoarthritis, unspecified site; F17.210 Nicotine dependence, cigarettes, uncomplicated; K76.89 Other specified diseases of liver; Z79.899 Other long term (current) drug therapy; Z79.890 Hormone replacement therapy; Z79.4 Long term (current) use of insulin; Z85.828 Personal history of other malignant neoplasm of skin; Z98.890 Other specified postprocedural states; Z96.652 Presence of left artificial knee joint; Z90.49 Acquired absence of other specified parts of digestive tract; Z88.1 Allergy status to other antibiotic agents; Z88.7 Allergy status to serum and vaccine; Z88.8 Allergy status to other drugs, medicaments and biological substances; Z91.09 Other allergy status, other than to drugs and biological substances
CPT/HCPCS: 80048; 85025; 20205; J2250; J1644; J1100; J0690; J2405; J2003; J3010; J2704; J1171; J2371

== ENCOUNTER → 2025-01-13 | Outpatient (CLI) | payer MEDICARE, OTHER ==
--- NOTE | 2025-01-15 09:18 | MR ---
EXAMINATION TYPE: MR femur/thigh RT wo con, MR femur/thigh LT wo con DATE OF EXAM: 01/13/2025 5:21 PM COMPARISON: None. 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 Contrast: mL (none if empty) FINDINGS: Visualized portions of the pelvis are grossly intact. Comparing the thigh musculature bilaterally there is increased fatty atrophy changes within the left lower extremity muscles. There is [id number] amputation on the left. No evidence for abnormal bon e marrow signal within the amputation site. No organizing fluid collections identified. Mild atrophy changes on the left involving the quadriceps musculature worse in the vastus lateralis and vastus int ermedius muscles. Mild atrophy changes of the gluteus lissy musculature, left greater than right. Mild degeneration changes at the hips with joint space narrowing and osteophyte formation. The bone marrow signal intensity is within normal limits. Soft tissues are grossly unremarkable. No evidence organizing fluid collection or soft tissue mass. IMPRESSION: 1. No evidence definitive evidence for myositis, measuring over the contrast is not utilized for thi s examination. 2. Left below-knee amputation with mild atrophy changes of the left lower extremity musculature like ly secondary to surgical change. 3. No organizing fluid collections. 4. Bone marrow signal within normal limits. No evidence for osteomyelitis. [facility], , 01/15/2025 9:16 AM
== END | disposition home or self-care (01) ==
LOC: RADMRIMAIN 15:16
PROVIDERS: ATTEND Internal Medicine Rheumatology
DX: M60.9 Myositis, unspecified (principal); J84.9 Interstitial pulmonary disease, unspecified; M62.50 Muscle wasting and atrophy, not elsewhere classified, unspecified site; Z89.512 Acquired absence of left leg below knee